=== PATIENT | male | born 1950 | race Caucasian/White ===

== ENCOUNTER 2020-01-14 09:47 | Inpatient (IN) | payer OTHER, SELFPAY ==
[2020-01-14] VITALS (60 sets, daily range): BP systolic 97–146; BP diastolic 60–89; PULSE 62–90; RESP 10–26; TEMP 36.6–36.8; O2SAT 90–99
--- NOTE | 2020-01-14 09:45 | RT.EKG_ITS ---
APPROVED REPORT Exam: Resting ECG Patient Location: E HR:73 bpm ECG Measurements Heart Rate 73 AXIS TX 199 P 44 QRSd 117 QRS -55 QT 391 T 81 QTc 431 Conclusion Sinus rhythm...normal P axis, V-rate 60- 99 Left anterior fascicular block...axis(240,-40), init forces inf LVH with secondary repolarization abnormality...multi-LVH criteria, abnrm ST-T
--- NOTE | 2020-01-14 09:58 | ED.GENADUL_ITS ---
Discharge Plan Disposition Patient Disposition: [facility] INPATIENT Condition: Improving Discharge Details Clinical Impression: Fall, Laceration of scalp, Closed rib fracture, Hemothorax on left, Closed fracture of transverse process of thoracic vertebra, Closed fracture of left clavicle Admit Date/Time: 01/14/20 12:12 Admit Provider: Felipa Schmitz Attending Provider: Felipa Schmitz Primary Care Provider: Unknown,Unknown ED Provider: Jeffry Brownlee Discharge Data Discharge Date/Time-TO BE ENTERED AT DEPARTURE: 01/14/20 14:00 Medical Decision Making 1045??patient seen immediately on arrival. Patient is a 69-year-old male [facility] sustaining injury to his head and left shoulder and left chest. Patient is hemodynamically stable and airway intact. Collar was applied by EMS and maintained. Patient with bleeding left occipital scalp laceration. Pressure dressing was applied to control bleeding. Consider acute life-threatening intracranial traumatic hemorrhage, C-spine fracture, rib fracture or pneumothorax, intra-abdominal trauma including deep pelvic fracture. Plan to obtain CT imaging. Fentanyl 50 mcg IV given for pain. N.p.o./IVF fluid initiated. Unsure of last tetanus. Will give tetanus immunization --Labs reviewed and nondiagnostic. --CT of the head interpreted by radiology: No acute intracranial hemorrhage. Extracalvarial soft tissue swelling superiorly and laterally on the left, 12 mm. Bubbles of air in this region consistent with laceration. CT of the cervical spine interpreted by radiology: No acute fracture of the cervical spine. No subluxation or dislocation of the cervical spine. Nondisplaced fracture of the left transverse process of T2. Minimally displaced fractures of the left transverse process of T3. Nondisplaced fracture of the left transverse process of T4 and T5. Minimally displaced fracture of the left posterior second through fifth ribs. Intervertebral disc base narrowing C3-C7 with may represent degenerative disc disease. CT of the chest interpreted by radiology: Small left hemothorax status post acute on chronic nondisplaced posterior left ninth rib fracture. Acute minimally displaced fractures of left T2-T9 transverse processes. Acute nondisplaced distal left clavicle fracture. Atherosclerosis including the coronary artery disease. CT of the abdomen and pelvis interpreted by radiology: No acute abnormality or suspicious finding in the abdomen pelvis. X-ray of the left shoulder interpreted by radiology: Acute nondisplaced distal left clavicle fracture. C-spine was cleared by me. Scalp laceration 8 cm was irrigated with copious sterile saline and closed with enmanuel with assistance by Dr. Schmitz. Wound borders well approximated and hemostasis achieved. Patient given Ancef 2 g as recommended by Dr. Schmitz. Patient to be admitted to the general surgery service, Dr. Schmitz to admit for pain control and continue monitoring --Additional fentanyl 50 mcg IV given for pain. Lab Data Lab results reviewed: Yes I reviewed the patient's lab results. ECG Data Attestation: I personally reviewed and interpreted this ECG (s) as follows: (Sinus rhythm 73 bpm, left anterior fascicular block, LVH.) HPI General Mode of arrival: EMS . Date/Time Provider Initiated Documentation: 01/14/20 09:57 . Limitations to Documentation: no limitations . Information obtained by: EMS . HPI Narrative: 69-year-old male presents with chief complaint of chest pain. Patient slipped and fell off a patio approximately 15 foot to the ground. This occurred just prior to arrival. He has pain in his left chest, left shoulder, right pelvis. He did sustain head injury and cut his posterior scalp. He denies loss of consciousness. He denies headache. No neck pain or back pain. Pain in his chest is moderate. Worse with deep breaths and with movement of his left shoulder. No associated shortness of breath. No abdominal pain. Related Data Home Medications Medication Instructions Recorded Confirmed epinephrine [EpiPen] 01/14/20 hydrochlorothiazide 25 mg PO DAILY 01/14/20 01/14/20 ipratropium-albuterol 3 ml INHALATION Q4H PRN PRN 01/14/20 01/14/20 losartan 50 mg PO DAILY 01/14/20 01/14/20 melatonin 3 mg PO QHS 01/14/20 01/14/20 tadalafil 20 mg PO DAILY 01/14/20 01/14/20 acetaminophen [Tylenol] 650 mg PO Q6H PRN #90 cap 01/17/20 bacitracin zinc 0 packet TOPICAL BID #60 ea 01/17/20 gabapentin 300 mg PO HS #30 cap 01/17/20 ibuprofen 600 mg PO Q6H PRN #90 tab 01/17/20 oxycodone 5 mg PO Q4H PRN #14 tab 01/17/20 oxycodone 5 mg PO Q6H PRN #14 cap 01/17/20 sennosides-docusate sodium [Senna 1 tab PO BID #60 tab 01/17/20 Plus] oxycodone 5 mg capsule 5 mg PO Q4H PRN #14 cap MDD 6 01/19/20 Previous Rx's Medication Instructions Recorded acetaminophen [Tylenol] 650 mg PO Q6H PRN #90 cap 01/17/20 bacitracin zinc 0 packet TOPICAL BID #60 ea 01/17/20 gabapentin 300 mg PO HS #30 cap 01/17/20 ibuprofen 600 mg PO Q6H PRN #90 tab 01/17/20 oxycodone 5 mg PO Q4H PRN #14 tab 01/17/20 oxycodone 5 mg PO Q6H PRN #14 cap 01/17/20 sennosides-docusate sodium [Senna 1 tab PO BID #60 tab 01/17/20 Plus] oxycodone 5 mg capsule 5 mg PO Q4H PRN #14 cap MDD 6 01/19/20 Allergies Allergy/AdvReac Type Severity Reaction Status Date / Time lisinopril Allergy Severe Angioedema Verified 01/14/20 13:22 bee venom protein (honey bee) Allergy Unverified 01/14/20 09:59 Sulfa (Sulfonamide Allergy Unverified 01/14/20 09:59 Antibiotics) General Stated Complaint: Trauma MICHELE: 2 Review of Systems All systems reviewed & are unremarkable except as noted in HPI and below Cardiovascular Cardiovascular: Reports chest pain (Lateral left chest) Gastrointestinal Gastrointestinal: Denies abdominal pain PFSH Medical History (Updated 01/14/20 @ 13:23 by Felipa Schmitz DO) Concussion Hypertension Social History Smoking/Tobacco Use Status: Former Tobacco Use Alcohol Intake: current Alcohol Intake frequency: 0-2 drinks per day Drug use: Occasionally Substance use type: marijuana Do you feel safe at home: Yes Do you feel safe in your relationship?: Yes Exam Const General: cooperative and no acute distress HENMT Mouth: moist mucous membranes Eyes Conjunctivae: normal conjunctivae EOM: EOM intact bilaterally Neck Neck: trachea midline and supple Resp Auscultation: clear to auscultation bilaterally, no rales, no rhonchi and no wheezes Cardio Jugular venous pressure: no JVD Rate: regular rate and not tachycardic Rhythm: regular rhythm GI Palpation: soft, not firm, no guarding, no masses, not rigid and nontender Back/Spine/Pelvis Cervical Spine: collar present Thoracic/Lumbar Spine: No thoracic spinal tenderness and No lumbar spinal tenderness Pelvis: no pain with anterior-posterior compression and no pain with lateral compression Skin Trauma: laceration (Left occiput) Neuro General: patient alert, patient awake, patient oriented x3 and tone normal Extrem Left upper extremity: shoulder/upper arm Details: tenderness Location: of the proximal humerus Other: No tenderness right upper extremity, bilateral lower extremities Psych Appearance: grossly normal Mental Status: mental status grossly normal Course Vital Signs Vital signs: Vital Signs Temperature 36.6 C 01/14/20 09:52 Pulse 79 01/14/20 09:52 Respiratory Rate 16 01/14/20 09:52 Blood Pressure 137/70 01/14/20 09:52 Pulse Oximetry 97 01/14/20 09:52 Temperature 36.6 C 01/14/20 09:52 Temperature Source Skin 01/14/20 09:52 Pulse 79 01/14/20 09:52 Respiratory Rate 16 01/14/20 09:52 Blood Pressure 137/70 01/14/20 09:52 Blood Pressure Position Supine 01/14/20 09:52 Pulse Oximetry 97 01/14/20 09:52 Oxygen Delivery Method Room Air 01/14/20 09:52 Oxygen Flow Rate 0 01/14/20 09:52 Pain Level 10 01/14/20 09:52 Procedures Laceration Laceration 1: Site: scalp Side (If applicable): left Size (cm): 8 Description: linear Depth: simple, single layer Local Anesthetic: Lidocaine 1% and with Epi Amount of anesthesia used (mL): 4 Pre-repair: wound explored, irrigated extensively and deep structures intact Skin layer closed with: other (Enmanuel) Number of sutures: 8 Critical Care Time Critical Care Time Critical Care Time: Yes Total Critical Care Time: 45 Attestation: I spent greater than 45 minutes addressing this patient's immediate life threats. Please see MDM section of note. This time was spent engaged in work directly related to the patient's care, exclusive of separate procedures, and failure to initiate these interventions would have likely resulted in clinically significant or life threatening deterioration in the patient's condition.
[2020-01-14] MEDS: fentaNYL 100 MCG/2 ML VIAL 50 MCG IVP ×3 (10:10→14:33)
[2020-01-14] MEDS: Lactated Ringers 1,000 ML 150 ML IV (10:10)
[2020-01-14 10:15] LABS: Abs Immature Grans 0.15 10^3/uL (0.0-0.06); Absolute Basophil Count 0.02 10^3/uL (0.0-0.2); Absolute Lymphocyte Count 1.35 10^3/uL (1.2-3.4); Absolute Monocyte Count 0.66 10^3/uL (0.1-0.8); Basophils % 0.3; Eosinophils % 1.5; HCT 41.7 % (40.0-50.0); HGB 14.4 g/dL (13.5-17.5); Immature Grans % 2.2; Lymphocytes % 19.9; MCH 33.4 pg (27.0-33.0); MCHC 34.5 % (32.0-36.0); MCV 96.8 fL (80-95); Monocytes % 9.7; Neutrophils % 66.4; Nucleated RBC 0 %; Platelet Count 178 10^3/uL (130-400); RBC 4.31 10^6/uL (4.36-5.78); RDW 13.2 % (11.8-14.1); RDW-SD 47.4 fL; WBC 6.78 10^3/uL (4.4-10.8)
[2020-01-14] MEDS: Omnipaque 350 MG/ML 100 ML BTL IJ (10:27)
[2020-01-14] MEDS: Normal Saline Flush 10 ML SYR IVP ×2 (10:28→14:35)
[2020-01-14] MEDS: Normal Saline - Diluent 50 ML VIAL IV (10:28)
[2020-01-14 10:31] LABS: ALT 38 U/L (16-63); AST 45 U/L (15-37); Albumin 3.7 g/dL (3.4-5.0); Alkaline Phosphatase 81 U/L (46-116); Anion Gap 12.6 mmol/L (3-11); BUN 18 mg/dL (7-18); Bilirubin, Total 0.7 mg/dL (0.2-1.0); CO2 24.4 mmol/L (21.0-32.0); CREATININE 1.32 mg/dL (0.70-1.30); Calcium 8.8 mg/dL (8.5-10.1); Chloride 100 mmol/L (98-107); Estimated GFR 53.94 (mL/min/1.73m2); Glucose 176 mg/dL (74-106); Potassium 3.2 mmol/L (3.5-5.1); Sodium 137 mmol/L (136-145); Total Protein 6.8 g/dL (6.4-8.2)
--- NOTE | 2020-01-14 10:35 | DI.CT_ITS ---
EXAM: CT HEAD CERVICAL SPINE WO CLINICAL HISTORY: fall 15 ft, head trauma. TECHNIQUE: Imaging Protocol: Axial computed tomography images with coronal and sagittal reformatted images were created and reviewed COMPARISON: No exams were available for comparison FINDINGS: CT Head: Ventricles and Extra axial spaces: Normal in size and morphology for the patient's age. Hemorrhage: None. Cerebral parenchyma: Areas of decreased attenuation are seen consistent with chronic microvascular is chemic disease. Midline shift: None. Brainstem/Cerebellum: Normal. Calvarium: Normal. Visualized Paranasal sinuses/Mastoids: Clear. Soft Tissues: Soft tissue laceration overlying the left parietal bone. CT Cervical Spine: Bones: No acute fracture or subluxation of the cervical spine. Please refer to the CT scan of the [facility] abdomen and pelvis for the findings in the chest. Soft Tissues: Unremarkable. Lung Apices: Chronic lung changes. IMPRESSION: 1. No acute intracranial process. 2. No acute fracture or subluxation in the cervical spine. 3. Please see the CT scan of the chest abdomen and pelvis. 4. Soft tissue laceration overlying the left parietal bone. RADIATION DOSE DELIVERED: 1,666.21mGy.cm Total DLP DATA REPOSITORY: All CT scans at this facility are submitted to the National Radiology Data Registry (NRDR) Dose Index Registry (DIR) with the [employer] ([employer]). RADIATION OPTIMIZATION: All CT scans at this facility use at least one of these dose optimization te chniques: automated exposure control; mA and/or kV adjustment per patient size (includes targeted exa ms where dose is matched to clinical indication); or iterative reconstruction.
[2020-01-14 10:36] LABS: Troponin I < 0.05 ng/mL (<0.06)
--- NOTE | 2020-01-14 10:45 | DI.CT_ITS ---
EXAM: CT CHEST/ABD/PEL W CLINICAL HISTORY: fall 15 ft, lt chest and shoulder pain, rt pelvic TECHNIQUE: Imaging Protocol: Axial computed tomography images with coronal and sagittal reformatted images were created and reviewed CONTRAST MATERIAL: Intravenous: Omnipaque 350 Contrast volume:100 mL Oral: No COMPARISON: No exams were available for comparison FINDINGS: CHEST: Tracheobronchial tree: Patent where visualized. Mediastinum and Magali: No dominant adenopathy or fluid collection. Pulmonary parenchyma: Dependent atelectasis. No architectural distortion. Pleura: No pneumothorax. May be a small left pleural effusion. Heart: The heart is not dilated. Mild coronary artery calcification. No pericardial effusion. Aorta: Thoracic aorta non-dilated. Atherosclerosis. Lymph nodes: Within normal limits. Bones:There is a mildly comminuted and displaced fracture of the left distal clavicle. There are mil dly displaced acute fractures involving the left transverse processes of the 2nd through 9th vertebra . There are old healed left rib fractures. There are acute fractures involving the posterior medial aspects of the left 1st and 2nd ribs. Soft tissues: Unremarkable. ABDOMEN: Liver: Normal density. No measurable mass. Portal, Superior Mesenteric, and Splenic Veins: Unremarkable. Gallbladder and Biliary Tract: No radiodense calculus or dilation. Pancreas: Normal density, no abnormal calcifications or inflammatory process. Spleen: Normal. Adrenals: No masses seen. Kidneys: Normal size, contour and axis. No radiodense stones or obstructive uropathy. Right renal cys t. Abdominal Aorta: Abdominal portion non-dilated. Atherosclerosis. Bowel: No obstruction or bowel wall thickening. Appendix is unremarkable. Colonic diverticulosis. No evidence of acute diverticulitis. Peritoneal Cavity: No ascites, collection or mesenteric inflammatory response. Lymph Nodes: Within normal limits. Bones: No acute fracture. Soft Tissues: Unremarkable. PELVIS: Bladder: Symmetric distention, no gross wall thickening. Reproductive Organs: Unremarkable as visualized. Lymph Nodes: Within normal limits. Bones: Within normal limits. IMPRESSION: 1. No acute abnormality in the abdomen or pelvis. 2. Acute fractures involving the left transverse processes of the 2nd through 9th vertebra. 3. Acute distal left clavicular fracture. 4. Acute appearing fractures involving the posteromedial aspect of the left 1st and 2nd ribs. 5. Question of a small left hemothorax. No pneumothorax. RADIATION DOSE DELIVERED: 1,199.47mGy.cm Total DLP DATA REPOSITORY: All CT scans at this facility are submitted to the National Radiology Data Registry (NRDR) Dose Index Registry (DIR) with the [employer] (ACR). RADIATION OPTIMIZATION: All CT scans at this facility use at least one of these dose optimization te chniques: automated exposure control; mA and/or kV adjustment per patient size (includes targeted exa ms where dose is matched to clinical indication); or iterative reconstruction.
--- NOTE | 2020-01-14 10:50 | DI.RAD_ITS ---
EXAM: XR SHOULDER LT COMPLETE 2+V CLINICAL HISTORY: trauma. TECHNIQUE: 2D digital imaging was performed. COMPARISON: No exams were available for comparison FINDINGS: BONES: Acute nondisplaced distal left clavicular fracture. Multiple old healed left rib fractures. Acute fracture involving the lateral aspect of a lower left rib seen on the [place]. JOINTS: No dislocation present. SOFT TISSUE: Old calcifications seen in the region of the AC joint and adjacent to the humeral head. IMPRESSION: Acute fracture involving the distal left clavicle and a left rib. DATA REPOSITORY: RADIATION DOSE DELIVERED:
--- NOTE | 2020-01-14 11:02 | DI.VRAD_ITS ---
PROCEDURE INFORMATION: Exam: CT Head Without Contrast Exam date and time: 01/14/2020 9:59 AM Age: 69 years old Clinical indication: Injury or trauma; Fall; Initial encounter; Blunt trauma (contusions or hematomas); Consciousness not specified; Blunt trauma and laceration; Without foreign body; Injury date: 01/14/20; Injury details: Trauma fell off deck. Significant laceration left sided temporal lobe, posteriorly. TECHNIQUE: Imaging protocol: Computed tomography of the head without contrast. Radiation optimization: All CT scans at this facility use at least one of these dose optimization techniques: automated exposure control; mA and/or kV adjustment per patient size (includes targeted exams where dose is matched to clinical indication); or iterative reconstruction. COMPARISON: No relevant prior studies available. FINDINGS: Brain: No acute intracranial hemorrhage.. There is mild diffuse heterogeneity of the white matter attenuation, consistent with chronic white matter ischemic changes. Mild cerebral atrophy Ventricles: Normal. No ventriculomegaly. Bones/joints: Unremarkable. No acute fracture. Sinuses: Visualized sinuses are unremarkable. No fluid levels. Mastoid air cells: Visualized mastoid air cells are well aerated. Soft tissues: Extra calvarial soft tissue swelling superiorly and laterally on the left 12 mm. Bubbles of air in this region consistent with laceration. IMPRESSION: 1. No acute intracranial hemorrhage.. 2. Extra calvarial soft tissue swelling superiorly and laterally on the left 12 mm. Bubbles of air in this region consistent with laceration. PROCEDURE INFORMATION: Exam: CT Cervical Spine Without Contrast Exam date and time: 01/14/2020 9:59 AM Age: 69 years old Clinical indication: Injury or trauma; Fall; Initial encounter; Blunt trauma (contusions or hematomas); Consciousness not specified; Blunt trauma and laceration; Without foreign body; Injury date: 01/14/20; Injury details: Trauma fell off deck. Significant laceration left sided temporal lobe, posteriorly. TECHNIQUE: Imaging protocol: Computed tomography images of the cervical spine without contrast. Radiation optimization: All CT scans at this facility use at least one of these dose optimization techniques: automated exposure control; mA and/or kV adjustment per patient size (includes targeted exams where dose is matched to clinical indication); or iterative reconstruction. COMPARISON: No relevant prior studies available. FINDINGS: Vertebrae: No acute fracture of the cervical spine. No subluxation or dislocation of the cervical spine. Nondisplaced fracture of the left transverse process of T2. Minimally displaced fractures of the left transverse process of T3. Nondisplaced fracture of the left transverse process of T4 and T5 . Anterior osteophyte formation C2 through C7 Degenerative changes in the facets at multiple levels Discs/Spinal canal/Neural foramina: Intervertebral disc space narrowing C3 through C7 may represent degenerative disc disease.. Posterior osteophyte formation C3 through C7 Degenerative changes at C1/C2 Other bones/joints: Minimally displaced fracture of the left posterior 2nd through the 5th ribs . Soft tissues: Unremarkable. Thyroid: The thyroid is unremarkable Lungs: Chronic lung changes in the apices IMPRESSION: 1. No acute fracture of the cervical spine. 2. No subluxation or dislocation of the cervical spine. 3. Nondisplaced fracture of the left transverse process of T2. Minimally displaced fractures of the left transverse process of T3. Nondisplaced fracture of the left transverse process of T4 and T5 . 4. Minimally displaced fracture of the left posterior 2nd through the 5th ribs . 5. Intervertebral disc space narrowing C3 through C7 may represent degenerative disc disease.. Dictated and Authenticated by: Yvon Hylton MD. Ordering:CYNTHIA Teran MD
--- NOTE | 2020-01-14 11:07 | DI.VRAD_ITS ---
PROCEDURE INFORMATION: Exam: CT Chest With Contrast Exam date and time: 01/14/2020 10:32 AM Age: 69 years old Clinical indication: Injury or trauma; Fall; Initial encounter; Generalized; Blunt trauma (contusions or hematomas); Injury date: 01/14/20; Injury details: Trauma fell off deck. Left sided chest and shoulder pain. ; Additional info: Included as much of left shoulder and arm on CT cap as possible shoulder x-rays to come. TECHNIQUE: Imaging protocol: Computed tomography of the chest with intravenous contrast. Radiation optimization: All CT scans at this facility use at least one of these dose optimization techniques: automated exposure control; mA and/or kV adjustment per patient size (includes targeted exams where dose is matched to clinical indication); or iterative reconstruction. Contrast material: OMNIPAQUE 350; Contrast route: INTRAVENOUS (IV); COMPARISON: No relevant prior studies available. FINDINGS: Tracheobronchial tree: Normal. Lungs: Mild posterior lower lobe lung atelectasis. Pleural space: Small left pleural effusion. Heart: Mild aortic valve and mitral annulus calcification. Coronary arteries: Multi-vessel calcification. Aorta: Normal. Great vessels off aortic arch: Normal. Lymph nodes: No enlarged axillary, mediastinal or hilar lymph nodes. Bones/joints: Chronic appearing healed fractures left posterior and posterolateral 5th, 6th, 7th, 8th and 9th ribs. There is a defect involving the posterior left 9th rib that appears to be acute on chronic fracture. No displacement. Acute minimally displaced fracture of the distal left clavicle. Acute mildly displaced fractures of left 2nd through 9th vertebral transverse processes. Soft tissues: Normal. IMPRESSION: 1. Small left hemothorax status post acute on chronic nondisplaced posterior left 9th rib fracture. 2. Acute minimally displaced fractures of left T2 through T9 transverse processes. 3. Acute nondisplaced distal left clavicle fracture. 4 the. Atherosclerosis including coronary artery disease. PROCEDURE INFORMATION: Exam: CT Abdomen And Pelvis With Contrast Exam date and time: 01/14/2020 10:32 AM Age: 69 years old Clinical indication: Injury or trauma; Fall; Initial encounter; Generalized; Blunt trauma (contusions or hematomas); Injury date: 01/14/20; Injury details: Trauma fell off deck. Left sided chest and shoulder pain. ; Additional info: Included as much of left shoulder and arm on CT cap as possible shoulder x-rays to come. TECHNIQUE: Imaging protocol: Computed tomography of the abdomen and pelvis with intravenous contrast. Radiation optimization: All CT scans at this facility use at least one of these dose optimization techniques: automated exposure control; mA and/or kV adjustment per patient size (includes targeted exams where dose is matched to clinical indication); or iterative reconstruction. Contrast material: OMNIPAQUE 350; Contrast volume: 100 ml; Contrast route: INTRAVENOUS (IV); COMPARISON: No relevant prior studies available. FINDINGS: Liver: There are few uniformly hypodense 2 mm hepatic lesions, likely benign. These do not require imaging follow-up. Gallbladder and bile ducts: Normal. Pancreas: Normal. Spleen: Normal. Adrenals: Normal. Kidneys and ureters: Simple/benign mid right renal cortical cyst measures 2.0 cm. This does not require imaging follow-up. Stomach and bowel: Small hiatal hernia. Very mild colonic diverticulosis. Appendix: Normal. Intraperitoneal space: No ascites, pneumoperitoneum or peritoneal lesion. Vasculature: No occlusion, dissection or aneuysm. Mild scattered atherosclerosis. Lymph nodes: No mesenteric, retroperitoneal or inguinal adenopathy. Bladder: Normal. Reproductive: Normal prostate and seminal vesicles. Bones/joints: No fracture or suspicious osseous lesion. Soft tissues: No mass or hernia. IMPRESSION: No acute abnormality or suspicious finding in the abdomen pelvis. Dictated and Authenticated by: Harvinder Saavedra MD. Ordering:CYNTHIA Teran MD
--- NOTE | 2020-01-14 11:09 | DI.VRAD_ITS ---
PROCEDURE INFORMATION: Exam: XR Left Shoulder Exam date and time: 01/14/2020 10:42 AM Age: 69 years old Clinical indication: Other: Trauma; Prior surgery; Surgery date: 6+ months; Additional info: Included as much of left shoulder and arm on CT cap as possible shoulder x-rays to come. TECHNIQUE: Imaging protocol: XR Left shoulder. Views: 2 or more views. COMPARISON: No relevant prior studies available. FINDINGS: Bones/joints: Nondisplaced acute distal left clavicle fracture. Multiple healed left rib fractures. The bones are normally aligned. Soft tissues: Acromioclavicular joint region calcification and lateral soft tissue calcification, both indicating old healed injury. IMPRESSION: 1. Acute, nondisplaced distal left clavicle fracture. 2. Old healed injuries involving multiple left ribs and left shoulder soft tissues. Dictated and Authenticated by: Harvinder Saavedra MD. Ordering:CYNTHIA Teran MD
[2020-01-14] MEDS: ceFAZolin 2 GM/50 ML BAG IVPB (12:39)
--- NOTE | 2020-01-14 13:18 | W.PM.HP.N ---
Date of service: 01/14/20 Time of Service: 13:18 Assessment and Plan Assessment and plan (1) Fall: Status: Acute (2) Laceration of scalp: Status: Acute Assessment and plan: Repaired in the ER. Received tetanus and antibiotics. Local wound care (3) Closed rib fracture: Status: Acute Assessment and plan: Pain management protocol. We will have anesthesia see the patient in a.m. for rib blocks. Aggressive pulmonary toilet We will hold on chemical DVT prophylaxis at time for risk of bleeding. Will reassess in a.m. (4) Hemothorax on left: Status: Acute Assessment and plan: Minimal. We will continue to monitor Continue with aggressive pulmonary toilet (5) Closed fracture of transverse process of thoracic vertebra: Status: Acute Assessment and plan: Will have physical therapy is a patient in morning. (6) Closed fracture of left clavicle: Status: Acute Assessment and plan: Will discuss with Ortho in the a.m. with if this is worth repairing (7) Hypertension: Status: Chronic (8) Concussion: Status: Acute Assessment and plan: Monitor for the next 24 hours with neuro checks. History of Present Illness Consults Consult date: 01/14/20 Narrative: Patient is a 69-year-old male who fell off his deck today. He did sustain some loss of consciousness. He has a large scalp laceration. He currently has no nausea or vomiting and is [place] orientated x3. C-spine was cleared by the ER staff. He has multiple rib fractures transverse process fractures laceration of the scalp and a concussion. He has a clavicle fracture. And a small hemo-pneumo. He has a history of multiple falls in the past. He has had multiple left-sided rib fractures. He has broken multiple bones. His left index finger/#2 finger is numb secondary to a penetrating injury in the remote past. His left toes are deformed and numb secondary to a bunion surgery in the remote past. He has had x2 rotator cuff repairs on the left and x1 done on the right in the past. He has had bilateral knee scopes done. He has no problems with anesthesia in the past. He is allergic to sulfa and develops a rash he is also allergic to lisinopril and had angioedema. He quit smoking 13 years ago. Past medical history significant for hypertension. He denies history of [place] or stroke. He denies history of diabetes. He denies any chest pain or shortness of breath. He denies any exposure or signs and symptoms of [place]. He was recently started on new 2 new blood pressure medications and cannot remember the name His last meal was breakfast at 8 AM. head and C spine are neg. mild microvasculae Dx. There is a mildly comminuted and displaced fracture of the left distal clavicle. There are mildly displaced acute fractures involving the left transverse processes of the 2nd through 9th vertebra. There are old healed left rib fractures. There are acute fractures involving the posterior medial aspects of the left 1st and 2nd ribs. Acute fracture involving the distal left clavicle and a left rib. Review of Systems All systems reviewed & are unremarkable except as noted in HPI and below [facility] Medical History (Updated 01/14/20 @ 13:23 by Felipa Schmitz DO) Concussion (Acute) Hypertension (Chronic) Social History Smoking/Tobacco Use Status: Former Tobacco Use Alcohol Intake: current Alcohol Intake frequency: 0-2 drinks per day Drug use: Occasionally Substance use type: marijuana Do you feel safe at home: Yes Do you feel safe in your relationship?: Yes Meds Home Medications and Allergies Home Medications Medication Instructions Recorded Confirmed Type aspirin [Aspir-81] 81 mg PO BID 01/14/20 01/14/20 History epinephrine [EpiPen] 01/14/20 History hydrochlorothiazide 25 mg PO DAILY 01/14/20 01/14/20 History ipratropium-albuterol 3 ml INHALATION Q4H PRN PRN 01/14/20 01/14/20 History losartan 50 mg PO DAILY 01/14/20 01/14/20 History melatonin 3 mg PO QHS 01/14/20 01/14/20 History tadalafil 20 mg PO DAILY 01/14/20 01/14/20 History Allergies Allergy/AdvReac Type Severity Reaction Status Date / Time lisinopril Allergy Severe Angioedema Verified 01/14/20 13:22 bee venom protein (honey bee) Allergy Unverified 01/14/20 09:59 Sulfa (Sulfonamide Allergy Unverified 01/14/20 09:59 Antibiotics) Exam Const General: cooperative and healthy appearing Orientation: alert, awake and oriented x3 Other: GCS 15 +loc w/ intial injury. no n/v. mild STEVE from laceration. 5 laceration down to msucle- re[aired in ED. received tetnus amd abx HENMT Head: normal to inspection, normocephalic, laceration (5 inches in the left temporal parietal region. It is down to the muscle. ), no occipital foramen tenderness, no palpable skull fracture and scalp tenderness Ears: hearing grossly normal bilaterally, external ears normal and hearing grossly impaired General nose exam: external nose normal, nasal mucous membranes and turbinates normal, septum normal and no nasal discharge noted Face and sinus: normal facial exam, sinuses nontender, face symmetric and no abrasions Mouth: oral mucosae normal and moist mucous membranes Neck Neck: normal visual inspection, full ROM, no lymphadenopathy, no midline deformity, nontender and no tracheal deviation Carotids: normal carotid upstroke Other: No pain with palpation no pain with active range of motion. Negative CT of the C-spine. Patient denies drugs and alcohol. Patient C-spine cleared in the ED. Chest Chest: normal inspection of the chest, deferred and localized rib tenderness with anteroposterior compression Other: Deformity of the lower clavicle. Patient has had x2 rotator cuff repairs on the left and x1 rotator cuff repair on the right. Complains of pain on the right shoulder . Resp Effort & Inspection: normal respiratory effort and able to speak in complete sentences Cardio Rate: regular rate GI Inspection: normal to inspection, no abdominal wall ecchymosis, non-distended and no visible herniation Palpation: soft and no hepatosplenomegaly Auscultation: normal bowel sounds Other: Negative hip breath. Complains of some mild pain over right femoral head Back/Spine/Pelvis Back: No ecchymosis and back tenderness Cervical Spine: normal cervical lordosis, cervical ROM normal, No loss of normal cervical lordosis and No cervical muscular tenderness Thoracic/Lumbar Spine: thoracic and lumbar spine normal to inspection, pain with thoraco-lumbar ROM and thoracic spinal tenderness (T1-T4 region) Pelvis: no pain with anterior-posterior compression, no pain with lateral compression, no buttock ecchymosis, no buttock tenderness, no unilateral elevation of iliac crest, no sciatic notch tenderness and no tenderness over symphysis pubis Skin Trauma: laceration (Scalp as previously noted) Neuro General: patient alert, patient awake, patient oriented x3, oriented, moves all extremities, no focal motor deficits, CN's II-XI intact bilaterally, normal sensation to monofilament and deep tendon reflexes 2+ bilaterally Cranial Nerves: CN's II-XI intact bilaterally, sense of smell intact, PERRL, accommodation normal, EOM intact bilaterally, no nystagmus, facial strength normal and hearing normal Cognition: normal cognition Speech: speech normal Motor: muscle tone normal throughout, strength 5/5 throughout and no pronator drift Sensory Exam: no sensory deficits noted Extrem General: normal to inspection, full ROM, no joint enlargement and no clubbing, cyanosis or edema Results Labs Result diagrams: 01/14/20 10:00 01/14/20 10:00 Labs: Laboratory Results - last 24 hr 01/14/20 01/14/20 01/14/20 10:00 10:00 10:00 WBC 6.78 RBC 4.31 L Hgb 14.4 Hct 41.7 MCV 96.8 H MCH 33.4 H MCHC 34.5 RDW 13.2 Plt Count 178 MPV 11.0 Immature Gran % 2.2 Neutrophils % 66.4 Lymphocytes % 19.9 Monocytes % 9.7 Eosinophils % 1.5 Basophils % 0.3 Nucleated RBC % 0 Absolute Neutrophils 4.50 Absolute Lymphocytes 1.35 Absolute Monocytes 0.66 Absolute Eosinophils 0.10 Absolute Basophils 0.02 Sodium 137 Potassium 3.2 L Chloride 100 Carbon Dioxide 24.4 Anion Gap 12.6 H BUN 18 Creatinine 1.32 H Estimated GFR/1.73 m2 53.94 Glucose 176 H Calcium 8.8 Total Bilirubin 0.7 AST 45 H ALT 38 Alkaline Phosphatase 81 Troponin I < 0.05 Total Protein 6.8 Albumin 3.7 Patient ABO/Rh O Positive Antibody Screen Negative Last Vital Signs Temp 36.6 C 01/14/20 09:52 Pulse 77 01/14/20 12:00 Resp 11 L 01/14/20 12:10 BP 141/89 H 01/14/20 12:00 Pulse Ox 96 01/14/20 12:10 COVID-19 Screening Have you,or household,traveled outside [place] in last 14 days?: No Had IN PERSON contact w/suspected or confirmed C-19 person: No
[2020-01-14] MEDS: Ketorolac 15 MG/ML VIAL IVP ×2 (14:34→20:08)
[2020-01-14] MEDS: Lactated Ringers 1,000 ML 75 ML IV (15:00)
--- NOTE | 2020-01-14 16:00 | W.PM.PROGNOT ---
Date of Service Date of service: 01/14/20 Time of Service: 16:00 Assessment and Plan Assessment and plan (1) Concussion: Status: Acute Assessment and plan: Neuro checks and observation for the next 24 hours (2) Fall: Status: Acute (3) Laceration of scalp: Status: Acute (4) Closed rib fracture: Status: Acute Assessment and plan: Aggressive pulmonary toilet. Coupled with adequate pain control Supportive care (5) Hemothorax on left: Status: Acute (6) Closed fracture of transverse process of thoracic vertebra: Status: Acute (7) Closed fracture of left clavicle: Status: Acute (8) Hypertension: Status: Chronic Subjective Subjective Interval history since last seen: Patient seen and examined. He has no nausea and vomiting. He has no headache. He has no bleeding from the scalp incision. Pupils are equal and reactive. He actually moves quite well. He says he is not having too much pain, as long as he does not move. He is having no nausea when actually like a little something to eat. He still complains of pain in his right hip we will obtain hip x-ray series in the a.m. He has no numbness or tingling in his hands and feet , Otherwise been in the previous injury to his #2 finger on the left and to his right second and third toes on the left. Both knees are pre-existing injuries. No loss of bowel or bladder control. No shortness of breath or cough. Exam Const Other: PHYSICAL EXAM GENERAL APPEARANCE: Alert, healthy appearance, oriented, in no acute distress SKIN: No rashes. Head laceration clean dry and intact HYDRATION: Well hydrated HEAD, EYES, EARS, NECK, AND THROAT: Head is normocephalic, pupils equal, round, reactive to light and accommodation, ocular movement intact, sclera clear and . Dentition intact. No pain in his neck with palpation or active range of motion. TMJ is intact NECK: Supple, . Trachea midline. LUNGS: normal respiration, clear to auscultation HEART: Regular rate and rhythm, EXTREMITY: No edema or cyanosis. No numbness or tingling in his hands and feet. ABDOMEN: non tender to palpation, no masses or distention, . Normal bowel sounds NEURO: no focal neuro deficits Objective Objective Clinical Data: Abnormal lab results 01/14/20 01/14/20 Range/Units 10:00 10:00 RBC 4.31 L (4.36-5.78) 10^6/uL MCV 96.8 H (80-95) fL MCH 33.4 H (27.0-33.0) pg Potassium 3.2 L (3.5-5.1) mmol/L Anion Gap 12.6 H (3-11) mmol/L Creatinine 1.32 H (0.70-1.30) mg/dL Glucose 176 H (74-106) mg/dL AST 45 H (15-37) U/L Vital Signs Temperature 36.8 C 01/14/20 14:49 Temperature Source Temporal Artery Scan 01/14/20 14:49 Pulse 86 01/14/20 14:49 Pulse 85 01/14/20 14:30 Respiratory Rate 18 01/14/20 14:30 Respiratory Effort Non-Labored 01/14/20 14:49 Respiratory Depth Normal 01/14/20 14:49 Respiratory Pattern Normal 01/14/20 14:49 Blood Pressure 131/82 01/14/20 14:30 Blood Pressure Mean 93 01/14/20 14:30 Blood Pressure Position Supine 01/14/20 14:49 Pulse Oximetry 96 01/14/20 14:49 Oxygen Delivery Method Room Air 01/14/20 14:49 Oxygen Flow Rate 0 01/14/20 14:49 Pain Level 10 01/14/20 14:49 Intake & Output 01/13/20 01/14/20 01/14/20 23:59 11:59 23:59 Output Total 500 / 500 Balance -500 / -500 Weight 82.9 kg Output: Urine 500 / 500 Laboratory Results WBC 6.78 10^3/uL (4.4-10.8) 01/14/20 10:00 RBC 4.31 10^6/uL (4.36-5.78) L 01/14/20 10:00 Hgb 14.4 g/dL (13.5-17.5) 01/14/20 10:00 Hct 41.7 % (40.0-50.0) 01/14/20 10:00 MCV 96.8 fL (80-95) H 01/14/20 10:00 MCH 33.4 pg (27.0-33.0) H 01/14/20 10:00 MCHC 34.5 % (32.0-36.0) 01/14/20 10:00 RDW 13.2 % (11.8-14.1) 01/14/20 10:00 Plt Count 178 10^3/uL (130-400) 01/14/20 10:00 MPV 11.0 fL (8.0-11.0) 01/14/20 10:00 Immature Gran % 2.2 01/14/20 10:00 Neutrophils % 66.4 01/14/20 10:00 Lymphocytes % 19.9 01/14/20 10:00 Monocytes % 9.7 01/14/20 10:00 Eosinophils % 1.5 01/14/20 10:00 Basophils % 0.3 01/14/20 10:00 Nucleated RBC % 0 % 01/14/20 10:00 Absolute Neutrophils 4.50 10^3/uL (1.2-6.7) 01/14/20 10:00 Absolute Lymphocytes 1.35 10^3/uL (1.2-3.4) 01/14/20 10:00 Absolute Monocytes 0.66 10^3/uL (0.1-0.8) 01/14/20 10:00 Absolute Eosinophils 0.10 10^3/uL (0.0-0.7) 01/14/20 10:00 Absolute Basophils 0.02 10^3/uL (0.0-0.2) 01/14/20 10:00 Sodium 137 mmol/L (136-145) 01/14/20 10:00 Potassium 3.2 mmol/L (3.5-5.1) L 01/14/20 10:00 Chloride 100 mmol/L (98-107) 01/14/20 10:00 Carbon Dioxide 24.4 mmol/L (21.0-32.0) 01/14/20 10:00 Anion Gap 12.6 mmol/L (3-11) H 01/14/20 10:00 BUN 18 mg/dL (7-18) 01/14/20 10:00 Creatinine 1.32 mg/dL (0.70-1.30) H 01/14/20 10:00 Estimated GFR/1.73 m2 53.94 (mL/min/1.73m2) 01/14/20 10:00 Glucose 176 mg/dL (74-106) H 01/14/20 10:00 Calcium 8.8 mg/dL (8.5-10.1) 01/14/20 10:00 Total Bilirubin 0.7 mg/dL (0.2-1.0) 01/14/20 10:00 AST 45 U/L (15-37) H 01/14/20 10:00 ALT 38 U/L (16-63) 01/14/20 10:00 Alkaline Phosphatase 81 U/L (46-116) 01/14/20 10:00 Troponin I < 0.05 ng/mL (<0.06) 01/14/20 10:00 Total Protein 6.8 g/dL (6.4-8.2) 01/14/20 10:00 Albumin 3.7 g/dL (3.4-5.0) 01/14/20 10:00 Patient ABO/Rh O Positive 01/14/20 10:00 Antibody Screen Negative 01/14/20 10:00
[2020-01-14] MEDS: oxyCODONE 5 MG TAB PO ×2 (16:28→23:43)
[2020-01-14] MEDS: ACETAMINOPHEN 1,000 MG/100 ML BTL 400 MG IVPB ×2 (16:29→23:07)
[2020-01-14] MEDS: FAMOTIDINE 20 MG/50 ML BAG 200 MG IVPB (16:58)
[2020-01-14] MEDS: Bacitracin 1 PACKET TP (20:08)
[2020-01-14] MEDS: Sennosides/Docusate Sodium TAB 1 TAB PO (20:08)
[2020-01-14] MEDS: Melatonin 3 MG TAB PO (23:07)
[2020-01-14] MEDS: Gabapentin 100 MG CAP PO (23:07)
[2020-01-15] VITALS (126 sets, daily range): BP systolic 102–163; BP diastolic 49–87; PULSE 57–84; RESP 9–33; TEMP 36.4–36.5; O2SAT 91–100
[2020-01-15] MEDS: Ketorolac 15 MG/ML VIAL IVP ×4 (01:35→21:24)
[2020-01-15] MEDS: Lactated Ringers 1,000 ML 75 ML IV ×2 (02:31→16:18)
[2020-01-15] MEDS: oxyCODONE 5 MG TAB PO ×3 (06:36→21:30)
[2020-01-15 07:04] LABS: Abs Immature Grans 0.04 10^3/uL (0.0-0.06); Absolute Basophil Count 0.02 10^3/uL (0.0-0.2); Absolute Eosinophil Count 0.04 10^3/uL (0.0-0.7); Absolute Lymphocyte Count 0.99 10^3/uL (1.2-3.4); Absolute Neutrophil Count 5.16 10^3/uL (1.2-6.7); Basophils % 0.3; Eosinophils % 0.6; HCT 37.2 % (40.0-50.0); HGB 12.6 g/dL (13.5-17.5); Immature Grans % 0.6; MCH 33.4 pg (27.0-33.0); MCHC 33.9 % (32.0-36.0); MCV 98.7 fL (80-95); MPV 11.2 fL (8.0-11.0); Monocytes % 11.3; Neutrophils % 73.2; Nucleated RBC 0 %; Platelet Count 146 10^3/uL (130-400); RBC 3.77 10^6/uL (4.36-5.78); RDW 13.5 % (11.8-14.1); RDW-SD 49.6 fL; WBC 7.05 10^3/uL (4.4-10.8)
[2020-01-15 07:23] LABS: ALT 47 U/L (16-63); AST 98 U/L (15-37); Albumin 3.1 g/dL (3.4-5.0); Alkaline Phosphatase 56 U/L (46-116); Anion Gap 7.7 mmol/L (3-11); BUN 21 mg/dL (7-18); Bilirubin, Total 0.7 mg/dL (0.2-1.0); CO2 28.3 mmol/L (21.0-32.0); CREATININE 1.39 mg/dL (0.70-1.30); Calcium 8.5 mg/dL (8.5-10.1); Chloride 101 mmol/L (98-107); Estimated GFR 50.82 (mL/min/1.73m2); Glucose 103 mg/dL (74-106); Potassium 4.2 mmol/L (3.5-5.1); Sodium 137 mmol/L (136-145); Total Protein 5.8 g/dL (6.4-8.2)
--- NOTE | 2020-01-15 08:00 | DI.RAD_ITS ---
EXAM: XR HIP RT COMPLETE AP PELVIS CLINICAL HISTORY: pain. s/p fall 15' from roof.. TECHNIQUE: 2D digital imaging was performed. COMPARISON: No exams were available for comparison FINDINGS: BONES: No acute fracture is present. No bony destructive lesion is seen. JOINTS: No dislocation present. SOFT TISSUE: Normal. IMPRESSION: No acute fracture or dislocation. DATA REPOSITORY: RADIATION DOSE DELIVERED:
--- NOTE | 2020-01-15 08:00 | DI.RAD_ITS ---
EXAM: XR CHEST 2V PA LATERAL CLINICAL HISTORY: Trauma. Rib fractures and hemothorax TECHNIQUE: 2D digital imaging was performed. COMPARISON: CR,XR XR SHOULDER LT COMPLETE 2+V from 01/14/2020 FINDINGS: MEDIASTINUM: Normal. HEART: Normal. PULMONARY VASCULATURE: Normal. LUNGS: Atelectasis in the lung bases. PLEURAL SPACE: Left pleural effusion. Given the patient's history, a left hemothorax cannot be exclu ded. BONE:There are multiple old left rib fractures. There is a fracture of the left clavicle again seen. Patient's known transverse process fractures are best appreciated on the CT scan. OTHER FINDINGS:Normal. IMPRESSION: Left pleural effusion which may represent a left hemothorax. DATA REPOSITORY: RADIATION DOSE DELIVERED:
--- NOTE | 2020-01-15 08:36 | W.PM.PROGNOT ---
Documented by User: LIZET Bhatia 01/15/20 08:39 Date of Service Date of service: 01/15/20 Time of Service: 08:36 Assessment and Plan Assessment and plan (1) Concussion: Status: Acute Assessment and plan: Continue Neuro checks. (2) Fall: Status: Acute Assessment and plan: Right Hip Xray this morning due to continued pain. (3) Laceration of scalp: Status: Acute (4) Closed rib fracture: Status: Acute Assessment and plan: Aggressive pulmonary toilet. Coupled with adequate pain control. Anesthesia will be up to discuss a nerve block for pain control. Supportive care (5) Hemothorax on left: Status: Acute Assessment and plan: Chest X-RAY ordered for this morning. (6) Closed fracture of transverse process of thoracic vertebra: Status: Acute (7) Closed fracture of left clavicle: Status: Acute (8) Hypertension: Status: Chronic Subjective Subjective Interval history since last seen: Doing okay today. Right hip is feeling better after using ice. Left shoulder and ribs are sore today. Exam Const General: cooperative, healthy appearing and comfortable Orientation: alert and oriented x3 Resp Effort & Inspection: normal respiratory effort, no audible wheezes and no cough Objective Objective Clinical Data: Abnormal lab results 01/14/20 01/14/20 01/15/20 Range/Units 10:00 10:00 06:15 RBC 4.31 L (4.36-5.78) 10^6/uL Hgb (13.5-17.5) g/dL Hct (40.0-50.0) % MCV 96.8 H (80-95) fL MCH 33.4 H (27.0-33.0) pg MPV (8.0-11.0) fL Absolute Lymphocytes (1.2-3.4) 10^3/uL Potassium 3.2 L (3.5-5.1) mmol/L Anion Gap 12.6 H (3-11) mmol/L BUN 21 H (7-18) mg/dL Creatinine 1.32 H 1.39 H (0.70-1.30) mg/dL Glucose 176 H (74-106) mg/dL AST 45 H 98 H (15-37) U/L Total Protein 5.8 L (6.4-8.2) g/dL Albumin 3.1 L (3.4-5.0) g/dL 01/15/20 Range/Units 06:15 RBC 3.77 L (4.36-5.78) 10^6/uL Hgb 12.6 L (13.5-17.5) g/dL Hct 37.2 L (40.0-50.0) % MCV 98.7 H (80-95) fL MCH 33.4 H (27.0-33.0) pg MPV 11.2 H (8.0-11.0) fL Absolute Lymphocytes 0.99 L (1.2-3.4) 10^3/uL Potassium (3.5-5.1) mmol/L Anion Gap (3-11) mmol/L BUN (7-18) mg/dL Creatinine (0.70-1.30) mg/dL Glucose (74-106) mg/dL AST (15-37) U/L Total Protein (6.4-8.2) g/dL Albumin (3.4-5.0) g/dL Vital Signs Temperature 36.8 C 01/14/20 21:08 Temperature Source Temporal Artery Scan 01/14/20 21:08 Pulse 57 L 01/15/20 04:01 Pulse 61 01/15/20 05:00 Respiratory Rate 11 L 01/15/20 05:00 Respiratory Effort 01/15/20 05:13 Respiratory Depth Normal 01/15/20 05:13 Respiratory Pattern Normal 01/15/20 05:13 Blood Pressure 107/72 01/15/20 04:01 Blood Pressure Mean 78 01/15/20 04:01 Blood Pressure Position Supine 01/14/20 14:49 Pulse Oximetry 95 01/15/20 05:09 Oxygen Delivery Method Room Air 01/15/20 05:09 Oxygen Flow Rate 0 01/15/20 05:09 Pain Level 7 01/15/20 06:36 Intake & Output 01/14/20 01/15/20 01/15/20 18:59 06:59 18:59 Intake Total 812.5 / 2640.00 1827.50 / 2640.00 Output Total 950 / 1300 350 / 1300 Balance -137.5 / 1340.00 1477.50 / 1340.00 Weight 82.9 kg Intake: IV 812.5 / 2640.00 1827.50 / 2640.00 Output: Urine 950 / 1300 350 / 1300 Other: Urine Color Yellow Dark [place] Urine Appearance Clear Clear Urine Odor Normal None Voiding Methods Urinal Urinal Laboratory Results WBC 7.05 10^3/uL (4.4-10.8) 01/15/20 06:15 RBC 3.77 10^6/uL (4.36-5.78) L 01/15/20 06:15 Hgb 12.6 g/dL (13.5-17.5) L 01/15/20 06:15 Hct 37.2 % (40.0-50.0) L 01/15/20 06:15 MCV 98.7 fL (80-95) H 01/15/20 06:15 MCH 33.4 pg (27.0-33.0) H 01/15/20 06:15 MCHC 33.9 % (32.0-36.0) 01/15/20 06:15 RDW 13.5 % (11.8-14.1) 01/15/20 06:15 Plt Count 146 10^3/uL (130-400) 01/15/20 06:15 MPV 11.2 fL (8.0-11.0) H 01/15/20 06:15 Immature Gran % 0.6 01/15/20 06:15 Neutrophils % 73.2 01/15/20 06:15 Lymphocytes % 14.0 01/15/20 06:15 Monocytes % 11.3 01/15/20 06:15 Eosinophils % 0.6 01/15/20 06:15 Basophils % 0.3 01/15/20 06:15 Nucleated RBC % 0 % 01/15/20 06:15 Absolute Neutrophils 5.16 10^3/uL (1.2-6.7) 01/15/20 06:15 Absolute Lymphocytes 0.99 10^3/uL (1.2-3.4) L 01/15/20 06:15 Absolute Monocytes 0.80 10^3/uL (0.1-0.8) 01/15/20 06:15 Absolute Eosinophils 0.04 10^3/uL (0.0-0.7) 01/15/20 06:15 Absolute Basophils 0.02 10^3/uL (0.0-0.2) 01/15/20 06:15 Sodium 137 mmol/L (136-145) 01/15/20 06:15 Potassium 4.2 mmol/L (3.5-5.1) D 01/15/20 06:15 Chloride 101 mmol/L (98-107) 01/15/20 06:15 Carbon Dioxide 28.3 mmol/L (21.0-32.0) 01/15/20 06:15 Anion Gap 7.7 mmol/L (3-11) 01/15/20 06:15 BUN 21 mg/dL (7-18) H 01/15/20 06:15 Creatinine 1.39 mg/dL (0.70-1.30) H 01/15/20 06:15 Estimated GFR/1.73 m2 50.82 (mL/min/1.73m2) 01/15/20 06:15 Glucose 103 mg/dL (74-106) D 01/15/20 06:15 Calcium 8.5 mg/dL (8.5-10.1) 01/15/20 06:15 Total Bilirubin 0.7 mg/dL (0.2-1.0) 01/15/20 06:15 AST 98 U/L (15-37) H 01/15/20 06:15 ALT 47 U/L (16-63) 01/15/20 06:15 Alkaline Phosphatase 56 U/L (46-116) 01/15/20 06:15 Troponin I < 0.05 ng/mL (<0.06) 01/14/20 10:00 Total Protein 5.8 g/dL (6.4-8.2) L 01/15/20 06:15 Albumin 3.1 g/dL (3.4-5.0) L 01/15/20 06:15 Patient ABO/Rh O Positive 01/14/20 10:00 Antibody Screen Negative 01/14/20 10:00 Documented by User: Felipa Schmitz DO 01/15/20 19:42 Assessment and Plan Assessment and plan (1) Concussion: Status: Acute Assessment and plan: At this point discontinue neurochecks. He can be changed in med-surg status. He had really good results with the rib blocks. Continue with pain control. We may need to repeat rib blocks in 24 to 48 hours time. Aggressive pulmonary toilet We will see how he is feeling in the a.m. and possible discharge. Continue with physical therapy and pulmonary toilet. No signs of pneumonia at this time. Patient is going to be off of work for a while (3 ~6 wks) and need to do physical therapy. He has a history of rotator cuff injury to both shoulders. He has had multiple surgeries on his shoulders. He may find that he continues to have pain and limitation of motion in the shoulders clearly on the right. We may need to order MRI in a future. Subjective Subjective Interval history since last seen: no headaches. No CP or SOB. no productive cough. no dysuria. no leg pain or swelling. No double vision or blurry vision. No nausea. Alert and orientated x3. Kg Coma Scale 18. He had excellent relief with the rib blocks. He has been up walking with PT using a cane for balance. He is tolerating p.o.'s. He is passing gas. He has no numbness or tingling in his hands or feet. He has good bowel and bladder control
[2020-01-15] MEDS: Bupivacaine 0.25% Pres-Free 30 ML VIAL (08:45)
[2020-01-15] MEDS: Sennosides/Docusate Sodium TAB 1 TAB PO ×2 (09:11→21:31)
[2020-01-15] MEDS: Losartan 50 MG TAB PO (09:12)
[2020-01-15] MEDS: ACETAMINOPHEN 1,000 MG/100 ML BTL 400 MG IVPB ×2 (09:13→16:09)
[2020-01-15] MEDS: Bacitracin 1 PACKET TP ×2 (09:13→21:30)
[2020-01-15] MEDS: Normal Saline Flush 10 ML SYR IVP ×3 (09:30→21:26)
--- NOTE | 2020-01-15 10:44 | PT.INIE ---
Date of service: 01/15/20 Time of Service: 10:44 PT Notes Visit Reasons: SCALP LACERATION, RIB FRACTURES, CLAVICLE FRACTURE Physical Therapy Inpatient Initial Evaluation Date: 01/15/2020 Referring Doctor: Felipa Schmitz MD PT Orders: PT CONSULT: Transverse process fracture T2-3 and 4. Multiple right rib fractures. Precautions: Fall. Standard. Activity as tolerated. Sling in L UE for comfort. Patient Profile/Admitting Diagnosis: Home is a 69-year-old male who presented to the ED on 01/14/2020 due to a fall from a flat roof onto a patio while power washing. He sustained a nondisplaced fracture of the left transverse processes of T2/T4/T5, minimally displaced fracture of the transverse process of the left T3, minimally displaced fracture of the left 2nd through the 5th ribs, and a nondisplaced fracture of the distal third of the clavicle on the left side. He also sustained a scalp laceration on the left parietal area and hemothorax on the left side. PMHX: Medical History (Updated 01/14/20 @ 13:23 by Felipa Schmitz DO) Concussion (Acute) Hypertension (Chronic) Social History/Home Situation: Home lives with in a private home with 14 steps to enter with a rail on the right going up. His martinez alone in [facility] every year. He has, however, have sons who live close who can help as needed. Independent with all aspects of ADLs without the need for an assistive ambulatory device nor adaptive meant. 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 Equipment Owned/DME: None. Subjective: Reports that the nerve block he had early this morning has really worked with pain control. He reports feeling unsteady during ambulation activity. Denies headache, chest pain, and dizziness throughout PT session. Objective: General Observation: Telemetry monitoring in place. Laceration of the left parietal area that has been approximated with surgical stitches. Left UE in sling. Pain: 4/10 pain in the right hip with ambulation activity Vital Signs: Heart rate range from low 60s to low 90s bpm and oxygen saturation low 90s through mid 90s throughout PT session ROM: Right Upper Extremity: Shoulder Flexion WFL. Shoulder abduction WFL. Elbow flexion WFL. Wrist flexion WFL. Opening and closing of hand WFL. Left Upper Extremity: NT Right Lower Extremity: Hip flexion WFL. Hip abduction WFL. Knee flexion WFL. Ankle dorsiflexion WFL. Ankle plantarflexion WFL. Left Lower Extremity: Hip flexion WFL. Hip abduction WFL. Knee flexion WFL. Ankle dorsiflexion WFL. Ankle plantarflexion WFL. Strength: Right Upper Extremity: Shoulder flexors 4/5. Shoulder abductors 4/5. Elbow flexors 4/5. Elbow extensors 4/5. Trucking Supervisor strong. Left Upper Extremity: NT Right Lower Extremity: Hip flexors 4-/5. Hip abductors 4/5. Knee flexors 4/5. Knee extensors 4-/5. Ankle dorsiflexors 4-/5. Ankle plantarflexors 4-/5. Left Lower Extremity: Hip flexors 4-/5. Hip abductors 4/5. Knee flexors 4/5. Knee extensors 4-/5. Ankle dorsiflexors 4-/5. Ankle plantarflexors 4-/5. Sensation: Intact as to pain and pressure on bilateral lower extremities except for localized area of numbness on the left anterior thigh which the patient says that he has had for a long time now. Bed Mobility/Transfers: Supine to sit standby assist on to the right side Sit to supine standby assist Sit to stand contact-guard assist, requires single-point cane Stand to sit contact-guard assist, requires single-point cane Bed to chair contact-guard assist, requires single-point cane Chair to bed contact-guard assist, requires single-point cane Gait: Short distance ambulation of 15 feet +5 feet using single-point cane with full weightbearing on bilateral lower extremities demonstrating decreased paulo. Patient complains of being unsteady and reports pain in the right hip at 4/10. Balance: Static Sitting: Normal Dynamic Sitting: Normal Static Standing: Fair Dynamic Standing: Fair Special Tests: Mobility Limitations Standardized Measure [facility] AM-PAC 6 clicks Basic Mobility Inpatient Short Form: Raw Score: 18 CMS Score: 47% deficit Informed Consent/Education: Patient instructed in purpose of PT consult and plan of care. Assessment: Home demonstrate significant functional mobility decline requiring the use of a an assistive ambulatory device for all mobility ADL performance, unsteadiness of gait, impairment in balance, decreased ability use her extremities, and generalized weakness due to admitting diagnoses. Home is a 69-year-old male who presented to the ED on 01/14/2020 due to a fall from a flat roof onto a patio while power washing. He sustained a nondisplaced fracture of the left transverse processes of T2/T4/T5, minimally displaced fracture of the transverse process of the left T3, minimally displaced fracture of the left 2nd through the 5th ribs, and a nondisplaced fracture of the distal third of the clavicle on the left side. He also sustained a scalp laceration on the left parietal area and hemothorax on the left side. Patient presents with clinical signs and symptoms consistent with current/admitting diagnoses that have resulted to mobility limitations, gait instability, generalized weakness, and impairment of motor control as demonstrated by the following impairment level findings: 1. Decreased strength to B LE major muscle groups 2. Impaired standing balance 3. Impaired activity tolerance 4. Limitation of joint range of motion in left UE Impairments are contributing to the following functional limitations: 1. Dependent bed mobility skills 2. Increased dependence with transfers 3. Inability to safely ambulate without assistive device and physical assistance 4. Increase completion time for mobility ADL performance 5. Increased fall risk 6. Inability to negotiate steps alone safely Patient is assessed as a 08914 moderate complexity based on the following: History: 69-year-old male with impairment level findings, functional limitations, and past medical history as indicated above Examination: Demonstrable impairment in strength, balance, and mobility level with underlying impairments and functional limitations as documented above Presentation:Evolving Decision Makin moderate complexity Goals: Goals X1 week 1. Supine-Sit independent 2. Sit-Supine independent 3. Sit-Stand independent 4. Stand-Sit independent 5. Bed-Chair independent 6. Chair-Bed independent 7. Independent gait on level surface with use of least restrictive device for at least 300 feet without report of pain nor dyspnea 8. Independent stair negotiation while holding onto bilateral rails for at least 10 steps without report of pain nor dyspnea 9. Independent with home exercise program 10. Good static and dynamic standing balance/tolerance Plan of Care/Treatment Plan: 1-2x/day, 7 days/week x 1 week. Plan of care has been reviewed with the BILLBOARD ERECTOR HELPER providing the service under Physical Therapy direction. Initiate Physical Therapy intervention for strengthening, bed mobility, transfers, gait, stairs, balance training, use of assistive device. DISCHARGE RECOMMENDATIONS: Patient will benefit from home health PT services in order to progress mobility level using least restrictive assistive ambulatory device, assess home safety, identify additional equipment needs, and establish a functional maintenance program that will increase ability of patient to remain at home. TREATMENT CODE/TIME: 47604 x 25 minutes, 04597 times x11 minutes beginning at 10:44 AM. Thank you for the opportunity to participate in the care of this patient. Brenda Orozco PT, DPT, CLT [facility] [place], [place]
--- NOTE | 2020-01-15 11:02 | NUR.NOTE ---
Nursing Note:08:10 KIMBERLEY Cook in room for bedside spinal block, Miranda Todd RN AND Marta Danielle RN assisting. Procedure explained to patient, patient consented. Pt position for procedure and pain medication administered via MERCHANDISE PRESENTATION ASSOCIATE. Patient tolerated procedure with no issues.
--- NOTE | 2020-01-15 13:43 | W.NUTRFU ---
Date of service: 01/15/20 Time of Service: 13:43 Nutritional Follow up NOTE: 69 year old male admitted with concussion, multiple closed fractures of clavicle and vertebal transverse processes with hx of HTN. BMI wnl for age. Tolerating soft/bland diet well. Not at risk for nutritional decline at this time. Will continue to monitor po intake, labs and weight and adjust meal plan as needed. Time Spent in Nutritional Counseling and Treatment: 0 time spent face to face
--- NOTE | 2020-01-15 14:08 | PHA.REVIEW ---
Pharmacy Admission Review - Admission Clinical Review (Last Updated 01/14/20 @ 13:23 by Felipa Schmitz DO) Concussion (Acute) Fall (Acute) Laceration of scalp (Acute) Closed rib fracture (Acute) Hemothorax on left (Acute) Closed fracture of transverse process of thoracic vertebra (Acute) Closed fracture of left clavicle (Acute) lisinopril Allergy (Severe, Verified 01/14/20 13:22) Angioedema bee venom protein (honey bee) Allergy (Unverified 01/14/20 09:59) Sulfa (Sulfonamide Antibiotics) Allergy (Unverified 01/14/20 09:59) Height 5 ft 8 in Weight 82.9 kg - Renal Dosing Renal Dosing: BUN 21 mg/dL (7-18) H 01/15/20 06:15 Creatinine 1.39 mg/dL (0.70-1.30) H 01/15/20 06:15 Medications needing adjustments: Reviewed (Crcl ~49 mL/min current meds okay) - Anticoagulation Anticoagulation: Hgb 12.6 g/dL (13.5-17.5) L 01/15/20 06:15 Hct 37.2 % (40.0-50.0) L 01/15/20 06:15 Plt Count 146 10^3/uL (130-400) 01/15/20 06:15 Creatinine 1.39 mg/dL (0.70-1.30) H 01/15/20 06:15 DVT Prohphylaxis: Reviewed (holding chemical prophylaxis for now due to risk of bleeding per H&P) - Opiate Usage Evaluate Pain Scale/Pains Meds: Reviewed (morphine CADD for pain control as well as other PRN meds) Scheduled Bowel Reg ordered if on Opiates?: Yes - Relevant Labs Sodium 137 mmol/L (136-145) 01/15/20 06:15 Potassium 4.2 mmol/L (3.5-5.1) D 01/15/20 06:15 Chloride 101 mmol/L (98-107) 01/15/20 06:15 Electrolytes, C-Reactive P, ESR: Reviewed - DM Control DM Control: Glucose 103 mg/dL (74-106) D 01/15/20 06:15 Insulin Dosing: N/A - Heart Failure/OR Heart Failure/OR: Troponin I < 0.05 ng/mL (<0.06) 01/14/20 10:00 EF%, BETINA's, B-Blockers, Diuretics: N/A - BP Control BP Control: Blood Pressure 127/72 Blood Pressure 127/72 Blood Pressure 117/79 Blood Pressure 115/81 Blood Pressure 102/49 Blood Pressure 130/83 Blood Pressure 133/78 If elevated: Reviewed (elevated some this morning prior to meds being given, within normal limits now) - Qtc Review If Elevated: N/A (QTc 431) - IV to PO Switch IV Medications: Reviewed - Home Meds Home Med List reviewed: Reviewed Relevent Home Meds Not ordered & why?: aspirin, epinephrine, HCTZ, tadalafil - Current meds Current Medication Order Review: Intervened (discontinued a dispensing machine order) - Comments Comments/Follow Ups: Watch VS, labs and for med changes (IV to PO, renal adjustments, changes in pain meds).
[2020-01-15] MEDS: FAMOTIDINE 20 MG/50 ML BAG 200 MG IVPB (16:08)
--- NOTE | 2020-01-15 17:37 | INITIAL_ITS ---
- If Service Date Differs Date of service: 01/15/20 Time of Service: 17:37 Care Management Initial Assess REASON FOR HOSPITALIZATION:: Fall with fractures of ribs and clavicle PAST MEDICAL HISTORY/PAST SURGICAL HISTORY:: Medical History (Updated 01/14/20 @ 13:23 by Felipa Schmitz DO). Concussion (Acute). Hypertension (Chronic) PREVIOUS FUNCTIONAL STATUS/SOCIAL/FAMILY SUPPORTS:: Carlos lives in a single family home in [place] with his . They have 3 sons and 5 granddaughters. Only their youngest son and his family live in the area. Carlos works with his son and they are very close. Carlos is independent at baseline and continue to work multimedia journalist. The injuries he sustained occurred while working. CURRENT FUNCTIONAL STATUS:: Carlos was sitting up in bed when CM met with him. He was pleasat and engaged readily with CM. Carlos shared the details of his accident blamimg it on just being careless. 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 ADVANCE DIRECTIVES:: provided with copies of the [place] froms at his request Has patient been provided with info about the portal/API?: Yes Did the patient sign up for the portal?: No CODE STATUS:: Full Code INSURANCE COVERAGE / FINANCIAL ISSUES:: Workers Comp CURRENT HOME/COMMUNITY SERVICES/EQUIPMENT:: none PRIMARY CARE PHYSICIAN:: at [facility] POTENTIAL DISCHARGE NEEDS:: follow up with PCP and discharge plan PATIENT/FAMILY EDUCATION NEEDS:: Discharge plan, limitations, follow up plan, Ask Me Three TRANSPORTATION:: via private vehicle with family PLAN:: Carlos will likely be discharged home with no new services. He will follow up with his PCP and discharge plan of care and transport with family. CM will continue to support patient and family and assess for discharge needs.
[2020-01-15] MEDS: Milk of Magnesia 30 ML CUP PO (21:30)
[2020-01-15] MEDS: Melatonin 3 MG TAB PO (21:30)
[2020-01-15] MEDS: Gabapentin 100 MG CAP PO (21:30)
[2020-01-15 21:31] LABS: COVID-19 RT-PCR UVMMC Result Negative (Negative)
[2020-01-15] MEDS: Acetaminophen 500 MG TAB 1000 MG PO (21:31)
[2020-01-16] VITALS (60 sets, daily range): BP systolic 144–167; BP diastolic 81–92; PULSE 59–81; RESP 10–24; TEMP 35.8–36.8; O2SAT 96–98
[2020-01-16] MEDS: Ketorolac 15 MG/ML VIAL IVP ×4 (01:46→19:46)
[2020-01-16] MEDS: Acetaminophen 500 MG TAB 1000 MG PO ×2 (06:00→13:27)
--- NOTE | 2020-01-16 07:24 | PGE_ITS ---
Documented by User: LIZET Bhatia 01/16/20 07:31 Date of Service Date of service: 01/16/20 Time of Service: 07:24 Assessment and Plan Assessment and plan (1) Concussion: Status: Acute (2) Fall: Status: Acute (3) Laceration of scalp: Status: Acute (4) Closed rib fracture: Status: Acute Assessment and plan: Aggressive pulmonary toilet. Continue with pain control efforts. Good effect with nerve block, however he did report break through pain in the middle of the night. Supportive care (5) Closed fracture of transverse process of thoracic vertebra: Status: Acute (6) Closed fracture of left clavicle: Status: Acute Assessment and plan: Continue to wear sling with activity. (7) Hypertension: Status: Chronic Subjective Subjective Interval history since last seen: Patient reports feeling well this morning. Reports in the middle of the night he woke up with severe pain in his ribs and back. This has improved, however his back continues to be sore. Exam Const General: cooperative, healthy appearing and comfortable Orientation: alert and oriented x3 Resp Effort & Inspection: normal respiratory effort, no audible wheezes and no cough Objective Objective Clinical Data: Abnormal lab results 01/15/20 Range/Units 06:15 BUN 21 H (7-18) mg/dL Creatinine 1.39 H (0.70-1.30) mg/dL AST 98 H (15-37) U/L Total Protein 5.8 L (6.4-8.2) g/dL Albumin 3.1 L (3.4-5.0) g/dL Vital Signs Temperature 35.8 C L 01/16/20 04:45 Temperature Source Temporal Artery Scan 01/16/20 04:45 Pulse 65 01/16/20 04:49 Pulse Rhythm Regular 01/16/20 04:45 Pulse 75 01/16/20 04:50 Respiratory Rate 15 01/16/20 04:50 Respiratory Effort Non-Labored 01/16/20 04:45 Respiratory Depth Normal 01/16/20 04:45 Respiratory Pattern Normal 01/16/20 04:45 Blood Pressure 144/81 H 01/16/20 04:49 Blood Pressure Mean 96 01/16/20 04:49 Blood Pressure Position Supine 01/15/20 12:20 Pulse Oximetry 96 01/16/20 02:06 Oxygen Delivery Method Room Air 01/16/20 02:34 Oxygen Flow Rate 0 01/16/20 02:34 Pain Level 0 01/16/20 06:00 Comment 01/16/20 04:45 Intake & Output 01/15/20 01/16/20 01/16/20 18:59 06:59 18:59 Intake Total 2143.75 / 2603.75 460 / 2603.75 Output Total 1074 Balance 1068.75 / 628.75 -440 / 628.75 Weight 85.9 kg Intake: IV 1293.75 / 1453.75 160 / 1453.75 Oral 850 / 1150 300 / 1150 Output: Urine 1074 Other: Urine Color Pale Yellow Urine Appearance Clear Clear Urine Odor Normal Normal Comment voiding usng urinal Mixed with stool, amount approximated Stool Size Moderate Stool Characteristics Formed Brown Voiding Methods Urinal Bedside Commode Laboratory Results WBC 7.05 10^3/uL (4.4-10.8) 01/15/20 06:15 RBC 3.77 10^6/uL (4.36-5.78) L 01/15/20 06:15 Hgb 12.6 g/dL (13.5-17.5) L 01/15/20 06:15 Hct 37.2 % (40.0-50.0) L 01/15/20 06:15 MCV 98.7 fL (80-95) H 01/15/20 06:15 MCH 33.4 pg (27.0-33.0) H 01/15/20 06:15 MCHC 33.9 % (32.0-36.0) 01/15/20 06:15 RDW 13.5 % (11.8-14.1) 01/15/20 06:15 Plt Count 146 10^3/uL (130-400) 01/15/20 06:15 MPV 11.2 fL (8.0-11.0) H 01/15/20 06:15 Immature Gran % 0.6 01/15/20 06:15 Neutrophils % 73.2 01/15/20 06:15 Lymphocytes % 14.0 01/15/20 06:15 Monocytes % 11.3 01/15/20 06:15 Eosinophils % 0.6 01/15/20 06:15 Basophils % 0.3 01/15/20 06:15 Nucleated RBC % 0 % 01/15/20 06:15 Absolute Neutrophils 5.16 10^3/uL (1.2-6.7) 01/15/20 06:15 Absolute Lymphocytes 0.99 10^3/uL (1.2-3.4) L 01/15/20 06:15 Absolute Monocytes 0.80 10^3/uL (0.1-0.8) 01/15/20 06:15 Absolute Eosinophils 0.04 10^3/uL (0.0-0.7) 01/15/20 06:15 Absolute Basophils 0.02 10^3/uL (0.0-0.2) 01/15/20 06:15 Sodium 137 mmol/L (136-145) 01/15/20 06:15 Potassium 4.2 mmol/L (3.5-5.1) D 01/15/20 06:15 Chloride 101 mmol/L (98-107) 01/15/20 06:15 Carbon Dioxide 28.3 mmol/L (21.0-32.0) 01/15/20 06:15 Anion Gap 7.7 mmol/L (3-11) 01/15/20 06:15 BUN 21 mg/dL (7-18) H 01/15/20 06:15 Creatinine 1.39 mg/dL (0.70-1.30) H 01/15/20 06:15 Estimated GFR/1.73 m2 50.82 (mL/min/1.73m2) 01/15/20 06:15 Glucose 103 mg/dL (74-106) D 01/15/20 06:15 Calcium 8.5 mg/dL (8.5-10.1) 01/15/20 06:15 Total Bilirubin 0.7 mg/dL (0.2-1.0) 01/15/20 06:15 AST 98 U/L (15-37) H 01/15/20 06:15 ALT 47 U/L (16-63) 01/15/20 06:15 Alkaline Phosphatase 56 U/L (46-116) 01/15/20 06:15 Troponin I < 0.05 ng/mL (<0.06) 01/14/20 10:00 Total Protein 5.8 g/dL (6.4-8.2) L 01/15/20 06:15 Albumin 3.1 g/dL (3.4-5.0) L 01/15/20 06:15 COVID-19 PCR Negative (Negative) 01/14/20 13:55 Nasopharyn COVID-19 PCR Not Applicable 01/14/20 13:55 Ref Test Perform Site [facility] lab 01/14/20 13:55 Patient ABO/Rh O Positive 01/14/20 10:00 Antibody Screen Negative 01/14/20 10:00 Documented by User: Marilou Jimenez MD 01/16/20 17:27
--- NOTE | 2020-01-16 08:10 | PT.INTREAT ---
Date of service: 01/15/20 Time of Service: 15:15 PT Notes Visit Reasons: SCALP LACERATION, RIB FRACTURES, CLAVICLE FRACTURE Inpatient Physical Therapy Treatment Note [facility] Date: 01/15/2020 SUBJECTIVE: Home states that he is feeling better since his nerve block. He also reports feeling less lightheaded and unsteady. OBJECTIVE: [] BED MOBILITY/TRANSFERS Supine-sit: SBA Sit-supine: SBA Sit-stand: SBA Stand-sit: SBA GAIT Assistive Device: SPC then IV pole Weight bearing: FWB Assist: CGA/SBA Distance: around his bed x2 Deviation:cord/tube management ASSESSMENT: tolerated session quite well. Pain seems to well managed at this point. Transfers were safe an no LOB noted PLAN: will continue to progress following PT POC. Would like him to walk in the [facility] tomorrow. TREATMENT CODE/TIME: 15 min. [id number]
[2020-01-16] MEDS: Sennosides/Docusate Sodium TAB 1 TAB PO (08:50)
[2020-01-16] MEDS: Losartan 50 MG TAB PO (08:50)
[2020-01-16] MEDS: Bacitracin 1 PACKET TP ×2 (08:50→19:46)
--- NOTE | 2020-01-16 12:45 | PT.INTREAT ---
Date of service: 01/16/20 Time of Service: 12:45 PT Notes Visit Reasons: SCALP LACERATION, RIB FRACTURES, CLAVICLE FRACTURE Inpatient Physical Therapy Treatment Note [facility] Date: 01/16/2020 PRECAUTIONS: Fall SUBJECTIVE: Home states that he is feeling worse today because it hurts to move. He reports that he feels the block that was applied yesterday has worn off. He is agreeable to participating in PT, and is excited to be able to ambulate in the hallways today. OBJECTIVE: Assist with donning sling R UE; cryocuff to R shoulder in p.m. PAIN: Patient c/o R hip discomfort with gait training and stairs. BED MOBILITY/TRANSFERS Supine-sit: I with HOB flat Sit-supine: I with HOB flat Sit-stand: S Stand-sit: S Bed-Chair: S Chair-bed: S GAIT Assistive Device: No AD Weight bearing: Full Assist: SBA Distance: ~400' in a.m.; 350' in p.m. Deviation: Occasional R hip gives out during ambulation, patient does not require assist to correct STAIRS: Up/down 3x4 and 2x6 using R rail and a step-to pattern with supervision in a.m.; up/down 6x4 and 4x6 using R rail and a step-over pattern with supervision. ASSESSMENT: Patient tolerated session with complaints of increased R hip discomfort and giving out with gait training. He demonstrates improved activity tolerance, tolerating a progression in gait training, without use of assistive device. He would benefit from continued gait training and strengthening for improved ability to perform functional daily tasks at a more independent level. PLAN: Continue gait training, strengthening, and stair training TREATMENT CODE/TIME: Session 1: 25 minutes; 35142 x2 Session 2: 30 minutes; 38566 x2
[2020-01-16] MEDS: Normal Saline Flush 10 ML SYR IVP ×2 (15:24→19:47)
[2020-01-16] MEDS: FAMOTIDINE 20 MG/50 ML BAG 200 MG IVPB (16:16)
--- NOTE | 2020-01-16 17:12 | PDOC.CMPRO ---
- If Service Date Differs Date of service: 01/16/20 Time of Service: 17:12 Care Management Progress Note S/O:Carlos was sitting up in a chair when CM met with him. He was smiling and stated that he is feeling much better, especially this afternoon. He did admit to having a lot of pain during the night and this morning, but stated that he is now using a cryocuff which has helped a lot. Carlos informed CM that he has been contacted by his W/C carrier and that he has a claim number for to use to submit appropriate information. Carlos was also provided with 2 copies of the [place] AD forms at his request. A: Carlos is a 69 year old man admitted on 01/14/20 with rib and scapula fractures P: Carlos will likely go home with no home services, although he may need PT at some point. He will follow up with his PCP and discharge plan of care and transport with family. CM will continue to support Carlos and assess for discharge planning needs.
[2020-01-16] MEDS: oxyCODONE 5 MG TAB PO (19:45)
[2020-01-16] MEDS: Aspirin E.C. 81 MG TABEC PO (19:46)
[2020-01-16] MEDS: Gabapentin 100 MG CAP PO (19:51)
[2020-01-16] MEDS: Melatonin 3 MG TAB 9 MG PO (19:51)
[2020-01-16] MEDS: Acetaminophen 325 MG TAB 650 MG PO (19:52)
[2020-01-16] MEDS: MORPHine 2 MG/ML SYR IV (22:24)
[2020-01-17] MEDS: oxyCODONE 5 MG TAB PO ×3 (00:06→13:42)
[2020-01-17 02:00] VITALS: PULSE 72; RESP 14
[2020-01-17] MEDS: Ketorolac 15 MG/ML VIAL IVP ×3 (02:56→13:42)
[2020-01-17] MEDS: Acetaminophen 325 MG TAB 650 MG PO ×3 (02:56→13:42)
[2020-01-17] MEDS: Normal Saline Flush 10 ML SYR IVP (02:56)
[2020-01-17 05:04] VITALS: BP 159/80; PULSE 66; PULSE 74; RESP 15
[2020-01-17] MEDS: Bacitracin 1 PACKET TP (07:38)
[2020-01-17] MEDS: Aspirin E.C. 81 MG TABEC PO (07:39)
[2020-01-17] MEDS: Omeprazole 20 MG CAPCR PO (07:39)
[2020-01-17] MEDS: Losartan 50 MG TAB PO (07:39)
[2020-01-17] MEDS: hydroCHLOROthiazide 25 MG TAB PO (07:39)
[2020-01-17] MEDS: Sennosides/Docusate Sodium TAB 1 TAB PO (07:39)
[2020-01-17 08:05] VITALS: RESP 16; O2SAT 98
--- NOTE | 2020-01-17 09:03 | PGE_ITS ---
Date of Service Date of service: 01/17/20 Time of Service: 09:03 Assessment and Plan Assessment and plan (1) Concussion: Status: Acute (2) Fall: Status: Acute (3) Laceration of scalp: Status: Acute Assessment and plan: No signs or symptoms of infection. Chris in place will need to be removed early next week. Discussed and reviewed how to care for his wound once home. (4) Closed rib fracture: Status: Acute Assessment and plan: Continue Aggressive pulmonary toilet. Continue with pain control efforts. Strongly encouraged ambulation and deep breathing frequently. OT ordered to ensure independence with ADLs. Okay to shower. D/C home later today following OT evaluation. Will need follow up with PCP early next week for follow up and staple removal. (5) Closed fracture of transverse process of thoracic vertebra: Status: Acute Assessment and plan: This is most likely the cause of the back discomfort he describes. Improves with repositioning. (6) Closed fracture of left clavicle: Status: Acute Assessment and plan: Continue to wear sling with activity. Cryocuff has improved his discomfort. Continue with this as needed. (7) Hypertension: Status: Chronic Assessment and plan: HCTZ was restarted yesterday. Subjective Subjective Interval history since last seen: Patient is doing great today. Pain is well controlled and the cryocuff has helped significantly with his left shoulder discomfort. He describes some intermittent back discomfort that feels like pinching. This improves with respositioning. (+) BMs yesterday. Exam Const General: cooperative, healthy appearing and comfortable Orientation: alert and oriented x3 HENMT Other: Left scalp laceration. Edges are well approximated with chris in place. No erythema, swelling or drainage noted. Resp Effort & Inspection: normal respiratory effort, no audible wheezes and no cough Objective Objective Clinical Data: Vital Signs Temperature 36.8 C 01/16/20 20:10 Temperature Source Temporal Artery Scan 01/16/20 20:10 Pulse 66 01/17/20 05:04 Pulse Rhythm Regular 01/17/20 08:46 Pulse 74 01/17/20 05:04 Respiratory Rate 16 01/17/20 08:05 Respiratory Effort Non-Labored 01/17/20 08:46 Respiratory Depth Normal 01/17/20 08:46 Respiratory Pattern Normal 01/17/20 08:46 Blood Pressure 159/80 H 01/17/20 05:04 Blood Pressure Mean 99 01/17/20 05:04 Blood Pressure Position Supine 01/15/20 12:20 Pulse Oximetry 98 01/17/20 08:05 Oxygen Delivery Method Room Air 01/17/20 08:05 Oxygen Flow Rate 0 01/17/20 08:05 Pain Level 6 01/17/20 00:06 Comment 01/16/20 04:45 Intake & Output 01/16/20 01/17/20 01/17/20 18:59 06:59 18:59 Intake Total 740 / 1301.75 561.75 / 1301.75 Output Total 250 / 1150 900 / 1150 Balance 490 / 151.75 -338.25 / 151.75 Intake: IV 10 / 171.75 161.75 / 171.75 Oral 730 / 1130 400 / 1130 Output: Urine 250 / 1150 900 / 1150 Other: Urine Color Light [place] Urine Appearance Clear Clear Clear Urine Odor Normal Comment mixed with stool - volume is est est urine only-mixed with stool Stool Occult Blood Negative Stool Size Moderate Moderate Stool Characteristics Soft Soft Formed Hard Brown Voiding Methods Bedside Commode Urinal Laboratory Results WBC 7.05 10^3/uL (4.4-10.8) 01/15/20 06:15 RBC 3.77 10^6/uL (4.36-5.78) L 01/15/20 06:15 Hgb 12.6 g/dL (13.5-17.5) L 01/15/20 06:15 Hct 37.2 % (40.0-50.0) L 01/15/20 06:15 MCV 98.7 fL (80-95) H 01/15/20 06:15 MCH 33.4 pg (27.0-33.0) H 01/15/20 06:15 MCHC 33.9 % (32.0-36.0) 01/15/20 06:15 RDW 13.5 % (11.8-14.1) 01/15/20 06:15 Plt Count 146 10^3/uL (130-400) 01/15/20 06:15 MPV 11.2 fL (8.0-11.0) H 01/15/20 06:15 Immature Gran % 0.6 01/15/20 06:15 Neutrophils % 73.2 01/15/20 06:15 Lymphocytes % 14.0 01/15/20 06:15 Monocytes % 11.3 01/15/20 06:15 Eosinophils % 0.6 01/15/20 06:15 Basophils % 0.3 01/15/20 06:15 Nucleated RBC % 0 % 01/15/20 06:15 Absolute Neutrophils 5.16 10^3/uL (1.2-6.7) 01/15/20 06:15 Absolute Lymphocytes 0.99 10^3/uL (1.2-3.4) L 01/15/20 06:15 Absolute Monocytes 0.80 10^3/uL (0.1-0.8) 01/15/20 06:15 Absolute Eosinophils 0.04 10^3/uL (0.0-0.7) 01/15/20 06:15 Absolute Basophils 0.02 10^3/uL (0.0-0.2) 01/15/20 06:15 Sodium 137 mmol/L (136-145) 01/15/20 06:15 Potassium 4.2 mmol/L (3.5-5.1) D 01/15/20 06:15 Chloride 101 mmol/L (98-107) 01/15/20 06:15 Carbon Dioxide 28.3 mmol/L (21.0-32.0) 01/15/20 06:15 Anion Gap 7.7 mmol/L (3-11) 01/15/20 06:15 BUN 21 mg/dL (7-18) H 01/15/20 06:15 Creatinine 1.39 mg/dL (0.70-1.30) H 01/15/20 06:15 Estimated GFR/1.73 m2 50.82 (mL/min/1.73m2) 01/15/20 06:15 Glucose 103 mg/dL (74-106) D 01/15/20 06:15 Calcium 8.5 mg/dL (8.5-10.1) 01/15/20 06:15 Total Bilirubin 0.7 mg/dL (0.2-1.0) 01/15/20 06:15 AST 98 U/L (15-37) H 01/15/20 06:15 ALT 47 U/L (16-63) 01/15/20 06:15 Alkaline Phosphatase 56 U/L (46-116) 01/15/20 06:15 Troponin I < 0.05 ng/mL (<0.06) 01/14/20 10:00 Total Protein 5.8 g/dL (6.4-8.2) L 01/15/20 06:15 Albumin 3.1 g/dL (3.4-5.0) L 01/15/20 06:15 COVID-19 PCR Negative (Negative) 01/14/20 13:55 Nasopharyn COVID-19 PCR Not Applicable 01/14/20 13:55 Ref Test Perform Site [facility] lab 01/14/20 13:55 Patient ABO/Rh O Positive 01/14/20 10:00 Antibody Screen Negative 01/14/20 10:00
--- NOTE | 2020-01-17 11:06 | OT.INIE ---
Occupational Therapy Notes Inpatient Occupational Therapy Evaluation Date: 01/17/20 Referring Doctor: Marilou Jimenez MD OT Orders: Urgent, Safety consult for D/C Precautions: Standard, Full PATIENT PROFILE/ADMITTING DIAGNOSIS: Pt is a 69 year old male who was admitted to [facility] on 01/14/20 d/t a fall from a roof onto a patio while power washing. He sustained a non displaced fx of the (L) transverse processes of T2/T4/T5, displaced fx of the transverse process of the left T3, minimally displaced fx of the (L) 2nd through the 5th ribs, as well as a fx of the distal third of the clavicle on the left side, and sustained a scalp laceration on the (L) parietal area and hemothorax. Past Medical History- (Updated 01/14/20 @ 13:23 by Felipa Schmitz DO) Concussion (Acute) Hypertension (Chronic) Social History/Home Situation: Pt lives in a private home with his . 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 At baseline he reports that he is (I) with his ADL/IADL routines. He does not utilize an assistive device for functional mobilty. He reports that you enter his home through a walk-in basement with 14 steps to enter to the first floor. He has a tub shower with no adaptive devices. He toilets (I) and performs his own cooking/meal prep if needed. He reports that his travels in the winter months and that he stays in the area. Equipment owned/DME: none SUBJECTIVE: Pt was lying in bed when OT arrived and was working with nursing getting ready to go to the shower. He reports that he has had OT numerous times for multiple fxs over the years and is not concerned about his ADLs when he returns home. He states that he has been washing himself for his bathing routine. He does not hesitate to perform any UE ROM and notes that his pain has been well managed at this time. OBJECTIVE: General Observation: IV (R) UE not connected, Cryo cuff on (L) shoulder, chris in back of head Mental Status: A&Ox3 Pain: no c/o pain ROM: RUE AROM WFL L UE NT due to fx of clavicle, during session pt does lift his (L) UE to his head and notes that he is able to perform this. OT educates pt to not lift his (L) UE above his head to allow his clavicular fx to heal. STRENGTH: RUE 4/5 throughout globally LUE Air Table Operator strength is strong SENSATION: Intact (B) UE FUNCTIONAL MOBILITY/ADLS: Transfers Supine-sit (S) Sit-supine (S) BATHING Pt was going to the shower with RN but while lying in bed performed visual AROM with (B) UE for bathing routine. He was able to cross midline, touch (B) shoulders, reach (B) LE and bend knees to bring foot towards abdomen. DRESSING Dressing UE OT educated pt on one handed dressing routines with in first and out last, stabilization to (L) UE to avoid any increased or sudden movements, vc provided for pt for in first, out last dressing technique which pt reports that he is familiar with from prior OT sessions from other fxs. OT educated pt on using his (R) UE for UE dressing to allow his (L) to stay supported he was able to demonstrate this for OT. Dressing LE Lying in bed pt was able to (I) don and doff (B) socks, OT educated pt on donning pants which he states that he sits when performing his pants to decrease his fall risk. He used his (R) UE to get his (R) leg in first and then would use his (R) UE to put in his (L) LE. He is also familiar with this and states that he is able to demonstrate which he can with good technique. GROOMING NT TOILETING NT with OT, however pt states that he has been utilizing toilet or commode in his room. He explains to OT that he uses his (R) UE for toileting hygiene which he demonstrates his AROM into extension to be able to perform this. He denies the need to perform this at this time. EATING NT with OT, pt reports no issues at this time. BALANCE: Static sitting Good Dynamic Sitting Good SPECIAL TESTS: Daily Activity Limitations Standardized Measure [facility] AM -PAC ?6 clicks? Daily Activity Inpatient Short Form: Raw score: 23 Standardized score: 51.12 CMS score: 15.86% INFORMED CONSENT/EDUCATION: Pt instructed in purpose of OT Consult and plan of care. ASSESSMENT: Patient is a 69-year-old male referred to occupational therapy services with diagnosis of non displaced fx of the (L) transverse processes of T2/T4/T5, displaced fx of the transverse process of the left T3, minimally displaced fx of the (L) 2nd through the 5th ribs, as well as a fx of the distal third of the clavicle on the left side, and sustained a scalp laceration on the (L) parietal area and hemothorax. Patient presents with clinical signs and symptoms consistent with dx. OT consult was performed at [facility] session, pt states that he has no concerns for when he returns home, he denies the need for any DME and denies the need for any HH services. He is receptive to education and training and was able to verbally explain how to perform his dressing and bathing in respect to the severity of his fxs and pain. He does not feel that further services will be needed and that he is working with Physical Therapy and feels that this is going well. AMPAC score 23, CMS score 15.86% Patient is assessed as a Moderate 68678 complexity based on the following: History: see above Examination: Significant acute fxs, decreased functional mobility required for ADL performance. Presentation: Evolving Decision Making: AMPAC score 23, CMS score 15.86% GOALS N/A as pt was seen for OT consult only. PLAN OF CARE/TREATMENT PLAN: Discharge from skilled OT services. DISCHARGE RECOMMENDATIONS Based on pts functional abilities and ability to perform his ADLS appropriately and safely in regards to his functional (I), OT does recommend that pt return home when medically cleared per MD. He is able to verbalize and demonstrate safe and effective bathing and dressing routines in terms of his fxs and pain. Pt denies the need for HH OT services. OT and pt discuss use of shower bench to decrease strain on pts fxs, pt states that he would consider. OT feels that pt may benefit from shower bench for increased safety and performance of his bathing routine due to pain, functional activity tolerance and over functional (I). No other DME recommended. TREATMENT TIME/MINUTES/CODES [id number], 18 minutes (07:40) Jenna Miles OTR/[facility]
--- NOTE | 2020-01-17 12:22 | PT.INTREAT ---
Date of service: 01/17/20 Time of Service: 12:22 PT Notes Visit Reasons: SCALP LACERATION, RIB FRACTURES, CLAVICLE FRACTURE Inpatient Physical Therapy Treatment Note [facility] Date: 01/17/2020 PRECAUTIONS: Fall SUBJECTIVE: Home is feeling good today, he feels that he is prepared to manage his functional daily tasks at home at this point. OBJECTIVE: Cryocuff to L shoulder PAIN: Patient c/o R hip discomfort with gait training and stairs. BED MOBILITY/TRANSFERS Supine-sit: I with HOB flat Sit-stand: I Stand-sit: I Bed-Chair: I Chair-bed: I GAIT Assistive Device: No AD Weight bearing: Full Assist: S - I Distance: ~500' Deviation: No R hip giving out STAIRS: Up/down 9x4 and 6x6 using R rail and a step-to pattern, independently ASSESSMENT: Patient demonstrates independence with bed mobility, transfers, and gait at this time. PLAN: As per primary PT TREATMENT CODE/TIME: 15 minutes; [id number]
--- NOTE | 2020-01-17 15:30 | DSE_ITS ---
Date of service: 01/17/20 Time of Service: 15:30 DS: Diagnosis Discharge Diagnosis (1) Concussion: Status: Acute (2) Fall: Status: Acute (3) Laceration of scalp: Status: Acute (4) Closed rib fracture: Status: Acute (5) Closed fracture of transverse process of thoracic vertebra: Status: Acute (6) Closed fracture of left clavicle: Status: Acute (7) Hypertension: Status: Chronic Discharge Plan Disposition Patient Disposition: HOME Condition: Improving Discharge Details Chief Complaint: Trauma Clinical Impression: Fall, Laceration of scalp, Closed rib fracture, Hemothorax on left, Closed fracture of transverse process of thoracic vertebra, Closed fracture of left clavicle Reason For Visit: SCALP LACERATION, RIB FRACTURES, CLAVICLE FRACTURE Admit Date/Time: 01/14/20 12:12 Admit Provider: Felipa Schmitz Attending Provider: Felipa Schmitz Primary Care Provider: Unknown,Unknown ED Provider: Jeffry Brownlee Home Meds and New Rx's Prescriptions: New sennosides-docusate sodium [Senna Plus] 8.6-50 mg Tablet 1 tab PO BID Qty: 60 RF: 3 gabapentin 100 mg capsule 300 mg PO HS Qty: 30 RF: 13 bacitracin zinc 500 unit/gram Ointment In Packet 0 packet topical BID Qty: 60 RF: 0 ibuprofen 600 mg tablet 600 mg PO Q6H PRNQty: 90 RF: 3 acetaminophen [Tylenol] 325 mg capsule 650 mg PO Q6H PRN (Reason: pain (scale score 4-6)) Qty: 90 RF: 6 oxycodone 5 mg capsule 5 mg PO Q6H PRNQty: 14 RF: 0 oxycodone 5 mg tablet 5 mg PO Q4H PRNQty: 14 RF: 0 Continued losartan 50 mg Tablet 50 mg PO DAILY RF: 0 melatonin 3 mg Tablet 3 mg PO QHS RF: 0 hydrochlorothiazide 25 mg Tablet 25 mg PO DAILY RF: 0 epinephrine [EpiPen] 0.3 mg/0.3 mL Auto-Injector RF: 0 tadalafil 20 mg Tablet 20 mg PO DAILY RF: 0 Discontinued aspirin [Aspir-81] 81 mg Tablet,Delayed Release (Dr/Ec) 81 mg PO BID RF: 0 No Action ipratropium-albuterol 0.5 mg-3 mg(2.5 mg base)/3 mL Solution For Nebulization 3 ml INHALATION Q4H PRN PRNRF: 0 Discharge Instructions Additional Instructions: Caring for Your Incision Pain Control Use ice! Ice keeps the swelling down and swelling is what causes pain. Never apply ice directly to the skin. Wrap it in a towel or cloth. Apply ice 20 minutes on and 20 minutes off for pain control. Use as needed. Take tylenol 325 mg by mouth with food every 4 hours as needed for pain. Or ibuprofen 600 mg by mouth with food every 6 hours as needed for pain. Do not take tylenol if you have a history of heavy drinking , hepatits C or liver problems. Do not take ibuprofen if you have a history of stomach ulcers/problems, bleeding problem or kidney issues. Types of incision closures ? Surgical stitches (sutures) are placed by sewing the edges of an incision together with surgical thread. Sutures are either absorbable or non-absorbable. Absorbable sutures break down in the body over time. Non-absorbable sutures need to be removed. ? Home care ? Always wash your hands before touching your incision. ? Keep the incision clean, dry, and out of water, keep the incision out of water. ? Do not to pick at the scabs. Scabs help protect the wound. ? You can take a shower in 24 hours and wash the incision with soap and water. Pat dry/don?t scrub. It?s OK to wash around the incision. But don?t spray water directly on it. ? Pat stitches dry if they get wet. Don't rub. ? Check the incision site daily for pain, redness, drainage, swelling, or separation of the incision edges. ? If there is a bandage (dressing) over the incision, change this every 24 hours as instructed by your provider. Using clean hands change the dressing as directed by your healthcare provider. Always wash your hands before changing your dressing. ? Make sure any clothing that touches the incision is loose-fitting. This will prevent rubbing. If the incision is on the head, keep your child from wearing caps or other head coverings. These may rub against the incision. ? Try to avoid from rough play, contact sports, or physical activities for two weeks. This can put you at risk of opening the incision. ? Make sure you avoid doing things that could cause dirt or sweat to get in or on the incision. As your incision heals, the skin may appear pink or red. It may also feel slightly bumpy or raised. This is called a healing ridge. Over time, the color should fade and the raised skin will become less noticeable. Follow-up care [place] or sutures generally need to be removed in 7 days. Be sure to return for suture or staple removal as directed. If dissolving stitches were used in your mouth, these will not need to be removed. They should fall out or dissolve on their own. If tape closures were used, remove them yourself when your healthcare provider tells you to if they have not fallen off on their own. When to seek medical care Call your healthcare provider right away if you have any of these: ? More pain, redness, swelling, bleeding, or foul-smelling discharge around the incision area ? Fever of 101?F (38.3?C) or higher, or as directed by your child's healthcare provider ? Shaking chills ? Vomiting or nausea that doesn?t go away ? Numbness, coldness, or tingling around the incision area, or changes in skin color ? Opening of the sutures or wound Stitches or chris come apart or fall out or surgical tape falls off before 7 days, or as directed by your healthcare provider [facility] on Wednesday to make appt w/ Dr. Schmitz in 7days or [place] [facility] [phone] Keep an ice bag on the incision. 20 minutes on and 20 minutes off. Ice keeps the swelling down and swelling causes pain. Make sure you wrap the ice pack in a towel and don't apply directly to the skin. -No driving x1 week or of you are taking narcotic pain medications. - you have chris or sutures in place, they will be need to be removed in 7 days, either w/ your own PCP or at the [facility] office. -Follow-up with Dr. Schmitz or your PCP in 1 week. -Regular diet. There are no restrictions. Watch out for constipation! Consider adding in a fiber supplement. -no straining to move bowels -pain meds are very constipating: if you do not move your bowels daily take a dose of OTC milk of magnesia -It is ok to shower. No bathe, soaking, swimming or hot tubs -Keep wound clean and dry. Wash incision with soap and water daily. Pat dry, don't rub. -Use an antibacterial ointment on your wound twice a day. wash w/ soap and water twice a day. Keep it clean and dry. -You may find that your appetite is smaller. Eat 3-6 small meals throughout the day. It is important to drink lots of water after surgery, 6-10 glasses a day. -If you were given an incentive spirometry (breathing airborne [employer]?), continue to do this 10x/hour while awake. -We do want you up walking, at least 5-6 times per day. This is very important to prevent pneumonia and blood clots. You can climb stairs, take them slowly. -No lifting over 5 pounds. This is very important to avoid disrupting the rib fractures. -You may find that you are very tired after trauma- this is normal. Activity:: up walking 4-6x a day. no lifting over 5#'s Equipment/Supplies:: shower chair Diet:: As Tolerated Discharge Orders Discharge Orders: Discharge Order (Routine); Ordered 01/17/20 Ordered By: Felipa Schmitz DS: Summary Status at Discharge Functional status at discharge: independent ambulation Overall status at discharge: patient is back to baseline Mental Status: mental status grossly normal Speech and Movement: speech and movement normal Mood: congruent mood Affect: normal affect Exam Psych Mental Status: mental status grossly normal Speech and Movement: speech and movement normal Mood: congruent mood Affect: normal affect DS: Data Vitals/I&O Vitals and I&O: Vital Signs Temperature 36.8 C 01/16/20 20:10 Temperature Source Temporal Artery Scan 01/16/20 20:10 Pulse 66 01/17/20 05:04 Pulse Rhythm Regular 01/17/20 08:46 Pulse 74 01/17/20 05:04 Respiratory Rate 16 01/17/20 08:05 Respiratory Effort Non-Labored 01/17/20 08:46 Respiratory Depth Normal 01/17/20 08:46 Respiratory Pattern Normal 01/17/20 08:46 Blood Pressure 159/80 H 01/17/20 05:04 Blood Pressure Mean 99 01/17/20 05:04 Blood Pressure Position Supine 01/15/20 12:20 Pulse Oximetry 98 01/17/20 08:05 Oxygen Delivery Method Room Air 01/17/20 08:05 Oxygen Flow Rate 0 01/17/20 08:05 Pain Level 6 01/17/20 00:06 Comment 01/16/20 04:45 Intake & Output 01/16/20 01/17/20 01/17/20 23:59 11:59 23:59 Intake Total 851.75 / 1411.75 470 / 710 240 / 710 Output Total 750 / 1650 400 / 400 Balance 101.75 / -238.25 70 / 310 240 / 310 Intake: IV 161.75 / 181.75 30 / 30 Oral 690 / 1230 440 / 680 240 / 680 Output: Urine 750 / 1650 400 / 400 Other: Urine Color Light [place] Urine Appearance Clear Clear Urine Odor Normal Comment est urine only-mixed with stool Stool Size Moderate Stool Characteristics Soft Hard Voiding Methods Urinal PFS Medical History (Updated 01/14/20 @ 13:23 by Felipa Schmitz DO) Concussion (Acute) Hypertension (Chronic) Social History Smoking/Tobacco Use Status: Former Tobacco Use Alcohol Intake: current Alcohol Intake frequency: 0-2 drinks per day Drug use: Occasionally Substance use type: marijuana Do you feel safe at home: Yes Do you feel safe in your relationship?: Yes
--- NOTE | 2020-01-17 16:12 | PDOC.CMDIS ---
- If Service Date Differs Date of service: 01/17/20 Time of Service: 16:12 LACE Index Scoring Tool - Questions: Length of Stay (in days): 3 Acuity (Admit via E.D.?): Yes E.D. Visits: 1 - Answers: Total Score: 7 Risk of Readmission: Low Risk Care Management Discharge Reason for Hospitalization: Fall with fractures of ribs and clavicle Discharge Plan: Carlos will be discharged home with no new home services. He will follow up with OP PT and his community providers. Carlos will transport via private vehicle with family. Patient/Family Education Needs: Discharge plan, limitations, follow up plan, Ask Me Three
--- NOTE | 2020-01-19 19:00 | PT.INDS ---
Date of service: 01/19/20 PT Notes Visit Reasons: SCALP LACERATION, RIB FRACTURES, CLAVICLE FRACTURE Inpatient Physical Therapy Discharge Summary Dates: 01/19/2020 Dates of Service: 01/15/2020 through 01/17/2020 This is a clinical summary of care provided on the duration of dates listed above. No charge was made in the completion of this documentation. Referring Doctor: Felipa Schmitz MD PT Orders: PT CONSULT: Transverse process fracture T2-3 and 4. Multiple right rib fractures. Precautions: Fall. Standard. Activity as tolerated. Sling in L UE for comfort. Patient Profile/Admitting Diagnosis: Home is a 69-year-old male who presented to the ED on 01/14/2020 due to a fall from a flat roof onto a patio while power washing. He sustained a nondisplaced fracture of the left transverse processes of T2/T4/T5, minimally displaced fracture of the transverse process of the left T3, minimally displaced fracture of the left 2nd through the 5th ribs, and a nondisplaced fracture of the distal third of the clavicle on the left side. He also sustained a scalp laceration on the left parietal area and hemothorax on the left side. PMHX: Medical History (Updated 01/14/20 @ 13:23 by Felipa Schmitz DO) Concussion (Acute) Hypertension (Chronic) Social History/Home Situation: Home lives with in a private home with 14 steps to enter with a rail on the right going up. His martinez alone in [facility] every year. He has, however, have sons who live close who can help as needed. Independent with all aspects of ADLs without the need for an assistive ambulatory device nor adaptive meant. 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 Equipment Owned/DME: None. Subjective: NT. See most recent TERMITE CONTROL TECHNICIAN notes. Objective: General Observation: NT. See most recent TERMITE CONTROL TECHNICIAN notes. Pain: NT. See most recent TERMITE CONTROL TECHNICIAN notes. Vital Signs: NT. See most recent TERMITE CONTROL TECHNICIAN notes. ROM: Right Upper Extremity: Shoulder Flexion WFL. Shoulder abduction WFL. Elbow flexion WFL. Wrist flexion WFL. Opening and closing of hand WFL. Left Upper Extremity: NT Right Lower Extremity: Hip flexion WFL. Hip abduction WFL. Knee flexion WFL. Ankle dorsiflexion WFL. Ankle plantarflexion WFL. Left Lower Extremity: Hip flexion WFL. Hip abduction WFL. Knee flexion WFL. Ankle dorsiflexion WFL. Ankle plantarflexion WFL. Strength: Right Upper Extremity: Shoulder flexors 4/5. Shoulder abductors 4/5. Elbow flexors 4/5. Elbow extensors 4/5. Store Receiving Specialist strong. Left Upper Extremity: NT Right Lower Extremity: Hip flexors 4-/5. Hip abductors 4/5. Knee flexors 4/5. Knee extensors 4-/5. Ankle dorsiflexors 4-/5. Ankle plantarflexors 4-/5. Left Lower Extremity: Hip flexors 4-/5. Hip abductors 4/5. Knee flexors 4/5. Knee extensors 4-/5. Ankle dorsiflexors 4-/5. Ankle plantarflexors 4-/5. Sensation: Intact as to pain and pressure on bilateral lower extremities except for localized area of numbness on the left anterior thigh which the patient says that he has had for a long time now. Bed Mobility/Transfers: Supine to sit independent Sit to supine independent Sit to stand independent Stand to sit independent Bed to chair independent Chair to bed independent Gait: 500 feet without assistive device with full weightbearing requiring supervision without a sense of the hip giving out. Also tolerated nine 4 inch steps and six 6 inch steps while holding onto one rail with step over step pattern independently. Balance: Static Sitting: Normal Dynamic Sitting: Normal Static Standing: Good Dynamic Standing: Good Assessment: Home demonstrate significant functional mobility gains during this episode of care as can be seen by current mobility level. He will have the support of his once he goes home. Home is a 69-year-old male who presented to the ED on 01/14/2020 due to a fall from a flat roof onto a patio while power washing. He sustained a nondisplaced fracture of the left transverse processes of T2/T4/T5, minimally displaced fracture of the transverse process of the left T3, minimally displaced fracture of the left 2nd through the 5th ribs, and a nondisplaced fracture of the distal third of the clavicle on the left side. He also sustained a scalp laceration on the left parietal area and hemothorax on the left side. Goals: Goals X1 week 1. Supine-Sit independent MET 2. Sit-Supine independent MET 3. Sit-Stand independent MET 4. Stand-Sit independent MET 5. Bed-Chair independent MET 6. Chair-Bed independent MET 7. Independent gait on level surface with use of least restrictive device for at least 300 feet without report of pain nor dyspnea NOT MET 8. Independent stair negotiation while holding onto bilateral rails for at least 10 steps without report of pain nor dyspnea NOT MET 9. Independent with home exercise program NOT MET 10. Good static and dynamic standing balance/tolerance NOT MET DISCHARGE RECOMMENDATIONS: Patient will benefit from home health PT services in order to progress mobility level using least restrictive assistive ambulatory device, assess home safety, identify additional equipment needs, and establish a functional maintenance program that will increase ability of patient to remain at home. TREATMENT CODE/TIME: NC. Thank you for the opportunity to participate in the care of this patient. Brenda Orozco PT, DPT, CLT [facility] [place], [place]
== END 2020-01-17 16:32 | disposition home or self-care (01) | DRG 88 ==
LOC: ER 13:28 → ICU 01-15 08:28
PROVIDERS: Admitting Provider Surgery; Emergency Provider Student in an Organized Health Care Education/Training Program; Visit Provider Surgery
DX: S06.0X9A Concussion with loss of consciousness of unspecified duration, initial encounter (principal); S27.1XXA Traumatic hemothorax, initial encounter; S22.028A Other fracture of second thoracic vertebra, initial encounter for closed fracture; S22.038A Other fracture of third thoracic vertebra, initial encounter for closed fracture; S22.048A Other fracture of fourth thoracic vertebra, initial encounter for closed fracture; S22.058A Other fracture of T5-T6 vertebra, initial encounter for closed fracture; S22.068A Other fracture of T7-T8 thoracic vertebra, initial encounter for closed fracture; S22.078A Other fracture of T9-T10 vertebra, initial encounter for closed fracture; S22.42XA Multiple fractures of ribs, left side, initial encounter for closed fracture; W17.89XA Other fall from one level to another, initial encounter; S01.01XA Laceration without foreign body of scalp, initial encounter; I10 Essential (primary) hypertension; S42.035A Nondisplaced fracture of lateral end of left clavicle, initial encounter for closed fracture
CPT/HCPCS: 12004; 36415; 74177; 76942; 80053; 86850; 86900; 86901; 90471; 93005; 96361; 96365; 96375; 96376; 97110; 97162; 97166; 97530; 99223; 99231; 99232; 99233; 99238; 99291; U0003; 70450; 71046; 71260; 72125; 73030; 73502; 84484; 85025; 93010; J0131; J0690; J1885; J2270; J3010; J3490; L3650